=== PATIENT | male | born 1950 | race Caucasian/White ===

== ENCOUNTER → 2018-03-30 05:46 | Outpatient (CLI) | payer BC, SELFPAY ==
[2018-03-30 08:12] LABS: Absolute Lymphocyte Count 1.34 X10^3/ul (0.83-4.51); Absolute Neutrophil Count 1.9 X10^3/uL (2.0-7.7); Basophil# 0.06 X10^3/uL; Basophil% 1.5 % (0-1); Eosinophil# 0.22 X10^3/uL; Eosinophils% 5.4 % (0-5); Hematocrit 39.5 % (40-54); Lymphocyte # 1.34 X10^3/ul (4.0); Lymphocyte % 32.8 % (19-41); Mean Corp Hgb Conc 32.9 g/gl (32-36); Mean Corpuscular Hgb 29.9 pg (27.0-32.0); Mean Corpuscular Volume 90.8 fL (80-94); Mean Platelet Vol. 9.5 fl (6.2-12.0); Monocyte# 0.43 X10^3/uL; Monocyte% 10.5 % (0-10); Neutrophil # 1.92 X10^3/uL (2.7-7.7); Neutrophil % 46.9 % (47-70); Platelet Count 256 K/mm3 (150-450); RBC Distribution Width CV 14.7 % (11.6-14.6); Red Blood Count 4.35 M/mm3 (4.6-6.2); White Blood Count 4.1 K/mm3 (4.4-11.0)
[2018-03-30 08:14] LABS: POSITIVE COUNT YES; POSITIVE DIFFERENTIAL NO; POSITIVE MORPHOLOGY YES
[2018-03-30 08:25] LABS: AST(SGOT) 15 U/L (15-37); Alanine Aminotransfer ALT/SGPT 24 U/L (16-61); Albumin, Serum 3.3 g/dL (3.2-5.0); Alkaline Phosphatase 91 U/L (45-117); Anion Gap 8 (5-15); BUN 24 mg/dL (7-18); BUN/Creat Ratio 22.4 RATIO (10-20); Bilirubin, Direct 0.11 mg/dL (0.00-0.30); Calcium,Total 8.9 mg/dL (8.5-10.1); Chloride 110 mmol/L (98-107); Creatinine, Serum 1.07 mg/dL (0.70-1.30); EST Glomerular Filtration Rate 74 mL/min (>60); Est Glom Filt Rate - Afr Amer 89 mL/min (>60); Globulin 3.6 g/dL (2.2-4.2); Glucose 82 mg/dL (74-106); Potassium 4.1 mmol/L (3.5-5.1); Protein, Total 6.9 g/dL (6.4-8.2); Sodium Level 145 mmol/L (136-145)
[2018-03-30 09:12] LABS: HIV - WCH Non-Reactive (Nonreactive)
[2018-03-30 14:44] LABS: Pathologist Review Reviewed
[2018-04-02 03:07] LABS: HEPATITIS B SURFACE AG Negative (Negative); QNTFERON TB Mitogen Value > 10.00 IU/mL (.); QNTFERON TB Nil Value 0.04 IU/mL (.); QNTFERON TB1+ Ag Value 0.04 IU/mL (.); QNTFERON TB2+ Ag Value 0.04 IU/mL (.)
[2018-04-02 12:53] LABS: Hep B Surface Antibodies Non Reactive (.); Hep C Antibodies <0.1 s/co ratio (0.0-0.9); Hepatitis B Core Ab Total Negative (Negative); QNTIFERON TB Positive Criteria Negative (Negative)
--- OUTSIDE RECORDS SUMMARY | 2018-07-01 11:16 | XMS RPT_ITS ---
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9 LAB L100.1810 11.6-14.6 % Normal RDW CV 14.3 LAB L100.1820 35.1-43.9 fl High RDW SD 47.0 LAB L100.1900 150-450 K/mm3 Normal PLT 256 LAB L100.2000 6.2-12.0 fl Normal MPV 9.6 LAB L100.2100 47-70 % Normal NEUT% 53.7 LAB L100.2200 19-41 % Normal LY% 29.5 LAB L100.2300 0-10 % Normal MONO% 8.5 LAB L100.2400 0-5 % High EO% 5.8 LAB L100.2500 0-1 % Normal BASO% 0.7 LAB L100.2550 0.0-0.9 % High IM GRAN % 1.800 Result Comment: IG% - Immature Granulocytes (promyelocytes, myelocytes and metamyelocytes) > 1% indicates that a LEFT SHIFT is Present. LAB L100.2620 2.0-7.7 X10 3/uL Normal Absolute Neut 3.8 LAB L100.2720 0.83-4.51 X10 3/ul Normal Absolute Lymph 2.08 Performed By: #### L100.0100 #### [facility]. [place], [place], [address] CBC W/DIFF, AUTOMATED Collected: 03/30/2018 Status: C Source: UNIVERSAL 5:58 AM [facility] REPOSITORY TYPE CODE TESTS RESULT OUT OF RANGE REFERENCE UNITS LAB L100.1000 4.4-11.0 K/mm3 Low WBC 4.1 LAB L100.1200 4.6-6.2 M/mm3 Low RBC 4.35 LAB L100.1300 13.0-16.5 g/dl Normal HGB 13.0 LAB L100.1400 40-54 % Low HCT 39.5 LAB L100.1500 80-94 fL Normal MCV 90.8 LAB L100.1600 27.0-32.0 pg Normal MCH 29.9 LAB L100.1700 32-36 g/gl Normal MCHC 32.9 LAB L100.1810 11.6-14.6 % High RDW CV 14.7 LAB L100.1820 35.1-43.9 fl High RDW SD 48.0 LAB L100.1900 150-450 K/mm3 Normal PLT 256 LAB L100.2000 6.2-12.0 fl Normal MPV 9.5 LAB L100.2100 47-70 % Low NEUT% 46.9 LAB L100.2200 19-41 % Normal LY% 32.8 LAB L100.2300 0-10 % High MONO% 10.5 LAB L100.2400 0-5 % High EO% 5.4 LAB L100.2500 0-1 % High BASO% 1.5 LAB L100.2550 0.0-0.9 % High IM GRAN % 2.900 Result Comment: IG% - Immature Granulocytes (promyelocytes, myelocytes and metamyelocytes) > 1% indicates that a LEFT SHIFT is Present. LAB L100.2620 2.0-7.7 X10 3/uL Low Absolute Neut 1.9 LAB L100.2720 0.83-4.51 X10 3/ul Normal Absolute Lymph 1.34 LAB L100.9900 Normal PATH REV Reviewed Result Comment: AMENDED REPORT 03/30/18 1444 PATH REV previously reported as: Sara rothman Performed By: #### L100.0100 #### [facility] [address] [place], [address] BASIC METABOLIC Collected: 03/30/2018 Status: F Source: UNIVERSAL PROFILE ([facility]) 5:58 AM [facility] REPOSITORY TYPE CODE TESTS RESULT OUT OF RANGE REFERENCE UNITS LAB L501.0100 74-106 mg/dL Normal GLU 82 Result Comment: Please note revised GLUCOSE reference range effective 2017. LAB L501.1000 7-18 mg/dL High BUN 24 LAB L501.1100 0.70-1.30 mg/dL Normal CREAT,SERUM 1.07 Result Comment: The validity of the calculated GFR AND GFRAA in patients over 70 years has not been determined. Clinical correlation is essential. LAB L501.1110 >60 mL/min Normal EST GFR 74 Result Comment: Non- GFR Calc LAB L501.1115 >60 mL/min Normal EST GFR - AA 89 Result Comment: GFR Calc LAB L501.1300 10-20 RATIO High BUN/CRE 22.4 LAB L501.2200 8.5-10.1 mg/dL CA Normal 8.9 LAB L501.5300 136-145 mmol/L NA Normal 145 LAB L501.5600 3.5-5.1 mmol/L K Normal 4.1 LAB L501.5900 98-107 mmol/L High CL 110 LAB L501.6100 21.0-32.0 mmol/L Normal CO2 27.0 LAB L501.6200 5-15 Normal GAP 8 Performed By: #### L500.2500, L500.3400 #### [facility] [address] [facility] [facility]. [place], [place], [id number] LIVER PROFILE Collected: 03/30/2018 Status: F Source: RADHA 5:58 AM [facility] REPOSITORY TYPE CODE TESTS RESULT OUT OF RANGE REFERENCE UNITS LAB L501.1500 6.4-8.2 g/dL Normal T PROT 6.9 LAB L501.1800 3.2-5.0 g/dL Normal ALB 3.3 LAB L501.1950 2.2-4.2 g/dL Normal GLOB 3.6 LAB L501.4100 15-37 U/L Normal AST 15 LAB L501.4305 45-117 U/L Normal ALK P 91 LAB L501.4405 16-61 U/L Normal ALT 24 LAB L501.4600 0.20-1.00 mg/dL Normal T BILI 0.40 LAB L501.4700 0.00-0.30 mg/dL Normal D BILI 0.11 Performed By: #### L500.2500, L500.3400 #### [facility] [address] [facility] [facility]. [place], [place], [address] HIV - [facility] Collected: 03/30/2018 Status: F Source: RADHA 5:58 AM [facility] REPOSITORY TYPE CODE TESTS RESULT OUT OF RANGE REFERENCE UNITS LAB L3890.6005 Nonreactive Normal HIV - [facility] Non-Reactive Performed By: #### L3890.6005 #### [facility] [address] [facility] [place], [place], [id number] HEPATITIS B SURFACE Collected: 03/30/2018 Status: F Source: RADHA AG 5:58 AM [facility] REPOSITORY TYPE CODE TESTS RESULT OUT OF RANGE REFERENCE UNITS LAB L3100.0400 Negative Normal HB Negative SURF AG Performed By: #### L3100.0390, L3100.0460, L3100.0528, L3100.0625, L3400.8000 #### [facility] (refer to report for specific site) refer to report for address and phone number HEPATITIS B CORE AB Collected: 03/30/2018 Status: F Source: RADHA TOTAL 5:58 AM [facility] REPOSITORY TYPE CODE TESTS RESULT OUT OF RANGE REFERENCE UNITS LAB L3100.0460 Negative Normal HEP B Negative CORE,TOT Result Comment: Performed at: [address] [id number] Supervisor Beet End: Saw Cotto PhD, Phone: [phone] Performed By: #### L3100.0390, L3100.0460, L3100.0528, L3100.0625, L3400.8000 #### [facility] (refer to report for specific site) refer to report for address and phone number HEP B SURFACE Collected: 03/30/2018 Status: F Source: RADHA ANTIBODIES 5:58 AM [facility] REPOSITORY TYPE CODE TESTS RESULT OUT OF RANGE REFERENCE UNITS LAB L3100.0528 . Normal Hep B Non Reactive Rui AB Result Comment: Non Reactive: Inconsistent with immunity, less than 10 mIU/mL Reactive: Consistent with immunity, greater than 9.9 mIU/mL Performed By: #### L3100.0390, L3100.0460, L3100.0528, L3100.0625, L3400.8000 #### [facility] (refer to report for specific site) refer to report for address and phone number HEPATITIS C ANTIBODIES Collected: 03/30/2018 Status: F Source: RADHA 5:58 AM [facility] REPOSITORY TYPE CODE TESTS RESULT OUT OF RANGE REFERENCE UNITS LAB L3100.0650 0.0-0.9 s/co ratio Normal HEP C AB <0.1 Result Comment: Negative: < 0.8 Indeterminate: 0.8 - 0.9 Positive: > 0.9 The CDC recommends that a positive HCV antibody result be followed up with a HCV Nucleic Acid Amplification test (603041). Performed By: #### L3100.0390, L3100.0460, L3100.0528, L3100.0625, L3400.8000 #### [facility] (refer to report for specific site) refer to report for address and phone number QUANTIFERON TB-GOLD+ Collected: 03/30/2018 Status: F Source: RADHA 5:58 AM [facility] REPOSITORY TYPE CODE TESTS RESULT OUT OF RANGE REFERENCE UNITS LAB L3400.8025 . Normal QFT TB Comment GOLD Result Comment: The QuantiFERON-TB Gold Plus result is determined by subtracting the Nil value from either TB antigen (Ag) tube. The mitogen tube serves as a control for the test. LAB L3400.8035 . IU/mL Normal QFT TB1+ AG 0.04 [facility] L3400.8045 . IU/mL Normal QFT TB2+ AG 0.04 [facility] L3400.8055 . IU/mL Normal QFT NIL VALUE 0.04 LAB L3400.8065 . IU/mL Normal QFT MITOGEN > 10.00 [facility] L3400.8075 Negative Normal QFT TB POS Negative CRIT Result Comment: The specimen received for QuantiFERON testing was incubated by the ordering institution. Specific procedures outlined in our Directory of Services and in the package insert for the QuantiFERON Gold (In Tube) test must be followed to enable for proper stimulation of cells for the production of interferon gamma. Performed By: #### L3100.0390, L3100.0460, L3100.0528, L3100.0625, L3400.8000 #### [facility] (refer to report for specific site) refer to report for address and phone number ALLERGIES ALLERGIES DATE TYPE / CODE NAME / CODE REACTION SEVERITY SOURCE 2013 Drug No Known Unknown [facility] Allergy/4160 Allergies/F00 [facility] [address](SNOMED 1202923(RXNOR Repository CT) M) ENCOUNTERS ENCOUNTERS ADMIT/DISCHARGE ACCOUNT ADMITTING ENCOUNTER LOCATION SOURCE NUMBER CLASS 05/05/2018 [id number] Ambulatory Radha Radha 9 [facility] ing:LAB Repository 03/30/2018 [id number] Ambulatory Radha Radha 3 [facility] ing:LAB Repository PAYERS PAYERS ENCOUNTER GUARANTOR PAYER SUBSCRIBER SOURCE 05/05/2018 AYSE Demarco [id number] Insurance:ANTHEMPolic STOCKSDALEDOB: [facility] y Number: [id number] [id number] Repository [address]Gbr: (330) Date:0372-28-34[phone] () [address], [place] [address]ER: 05/05/2018 Secondary NOT GIVENUNK Radha Insurance:SELF PAY [facility] Number: Effective Repository Date:2018-05-05 03/30/2018 AYSE Myers Primary AYSE R Radha [id number] Insurance:ANTHEMPolic STOCKSDALEDOB: [facility] Number: [id number] [id number] Repository [address]Yxq: (330) Date:9219-39-76KS [phone] () [id number], [place] [address]HB: 03/30/2018 Secondary NOT GIVENUNK Radha Insurance:SELF PAY [facility] Number: Effective Repository Date:2018-03-30
== END ==
PROVIDERS: Family Provider Student in an Organized Health Care Education/Training Program; PCP Student in an Organized Health Care Education/Training Program; Referring Provider Dermatology; Visit Provider Dermatology
DX: L40.3 Pustulosis palmaris et plantaris (principal); D17.1 Benign lipomatous neoplasm of skin and subcutaneous tissue of trunk; Z79.899 Other long term (current) drug therapy
CPT/HCPCS: 36415; 80048; 80076; 85025; 86480; 86703; 86704; 86706; 86803; 87340

== ENCOUNTER → 2018-05-05 05:58 | Outpatient (CLI) | payer BC, SELFPAY ==
[2018-05-05 07:30] LABS: Absolute Lymphocyte Count 2.08 X10^3/ul (0.83-4.51); Absolute Neutrophil Count 3.8 X10^3/uL (2.0-7.7); Basophil# 0.05 X10^3/uL; Basophil% 0.7 % (0-1); Eosinophil# 0.41 X10^3/uL; Eosinophils% 5.8 % (0-5); Hemoglobin 13.8 g/dl (13.0-16.5); Lymphocyte # 2.08 X10^3/ul (4.0); Lymphocyte % 29.5 % (19-41); Mean Corp Hgb Conc 32.9 g/gl (32-36); Mean Corpuscular Hgb 29.7 pg (27.0-32.0); Mean Corpuscular Volume 90.5 fL (80-94); Mean Platelet Vol. 9.6 fl (6.2-12.0); Monocyte% 8.5 % (0-10); Neutrophil # 3.78 X10^3/uL (2.7-7.7); Neutrophil % 53.7 % (47-70); Platelet Count 256 K/mm3 (150-450); RBC Distribution Width CV 14.3 % (11.6-14.6); Red Blood Count 4.64 M/mm3 (4.6-6.2); White Blood Count 7.1 K/mm3 (4.4-11.0)
[2018-05-05 07:31] LABS: POSITIVE COUNT NO; POSITIVE DIFFERENTIAL NO; POSITIVE MORPHOLOGY NO
--- OUTSIDE RECORDS SUMMARY | 2018-07-07 01:27 | XMS RPT_ITS ---
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 [place], [place], [address] CBC W/DIFF, AUTOMATED Collected: 03/30/2018 Status: C Source: MOOSE PASS 5:58 AM [facility] REPOSITORY TYPE CODE TESTS RESULT OUT OF [...] Sara rothman Performed By: #### L100.0100 #### [facility] [address] [place], [address] BASIC METABOLIC Collected: 03/30/2018 Status: F Source: MOOSE PASS PROFILE ([facility]) 5:58 AM [facility] REPOSITORY TYPE CODE TESTS RESULT OUT OF [...] 8 Performed By: #### L500.2500, L500.3400 #### [facility] [address] [facility]. [place], [place], [address] LIVER PROFILE Collected: 03/30/2018 Status: F Source: RADHA 5:58 AM [facility] REPOSITORY TYPE CODE TESTS RESULT OUT OF [...] 0.11 Performed By: #### L500.2500, L500.3400 #### [facility] [address] [facility] [place], [place], [address] HIV - [facility] Collected: 03/30/2018 Status: F Source: RADHA 5:58 AM [facility] REPOSITORY TYPE CODE TESTS RESULT OUT OF RANGE REFERENCE UNITS LAB L3890.6005 Nonreactive Normal HIV - [facility] Non-Reactive Performed By: #### L3890.6005 #### [facility] [address] [facility]. [place], [place], [id number] HEPATITIS B SURFACE Collected: 03/30/2018 Status: F Source: RADHA AG 5:58 AM [facility] REPOSITORY TYPE CODE TESTS RESULT OUT OF RANGE REFERENCE UNITS LAB L3100.0400 Negative Normal HB Negative SURF AG Performed By: #### L3100.0390, L3100.0460, L3100.0528, L3100.0625, L3400.8000 #### [facility] (refer to report for specific site) refer to report for address and phone number HEPATITIS B CORE AB Collected: 03/30/2018 Status: F Source: RADHA TOTAL 5:58 AM [facility] REPOSITORY TYPE CODE TESTS RESULT OUT OF RANGE REFERENCE UNITS LAB L3100.0460 Negative Normal HEP B Negative CORE,TOT Result Comment: Performed at: [address] [id number] Shaker Repairer: Saw Cotto PhD, Phone: [phone] Performed By: #### L3100.0390, L3100.0460, L3100.0528, L3100.0625, L3400.8000 #### [facility] (refer to report for specific site) refer to report for address and phone number HEP B SURFACE Collected: 03/30/2018 Status: F Source: RADHA ANTIBODIES 5:58 AM [facility] REPOSITORY TYPE CODE TESTS RESULT OUT OF [...] 03/30/2018 Status: F Source: RADHA 5:58 AM [facility] REPOSITORY TYPE CODE TESTS RESULT OUT OF RANGE REFERENCE UNITS LAB L3100.0650 0.0-0.9 s/co ratio Normal HEP C AB <0.1 Result Comment: Negative: < 0.8 Indeterminate: 0.8 - 0.9 Positive: > 0.9 The CDC recommends that a positive HCV antibody result be followed up with a HCV Nucleic Acid Amplification test (396928). Performed By: #### L3100.0390, L3100.0460, L3100.0528, L3100.0625, L3400.8000 #### [facility] (refer to report for specific site) refer to report for address and phone number QUANTIFERON TB-GOLD+ Collected: 03/30/2018 Status: F Source: RADHA 5:58 AM [facility] REPOSITORY TYPE CODE TESTS RESULT OUT [...] SEVERITY SOURCE 2013 Drug No Known Unknown [facility] Allergy/4160 Allergies/F00 [facility] [address](SNOMED 9685370(RXNOR Repository CT) M) ENCOUNTERS ENCOUNTERS ADMIT/DISCHARGE ACCOUNT ADMITTING ENCOUNTER LOCATION SOURCE NUMBER CLASS 05/05/2018 [id number] Ambulatory Radha Radha 9 [facility] ing:LAB Repository 03/30/2018 [id number] Ambulatory Radha Radha 3 [facility] ing:LAB Repository PAYERS PAYERS ENCOUNTER GUARANTOR PAYER SUBSCRIBER SOURCE 05/05/2018 AYSE Demarco [id number] Insurance:ANTHEMPolic [facility] Number: [id number] [id number] Repository [address]Vou: ([phone]) Date:2973-08-66TB [phone] () [id number], [place] [address]FZ: 05/05/2018 Secondary NOT GIVENUNK Radha Insurance:SELF PAY [facility] Number: Effective Repository Date:2018-05-05 03/30/2018 AYSE Myers Primary AYSE R Radha [id number] Insurance:ANTHEMPolic STOCKSDALEDOB: [facility] Number: [id number] [id number] Repository [address]Srw: (330) Date:1730-15-11IN [phone] () [id number], [place] [address]CZ: 03/30/2018 Secondary NOT GIVENUNK Radha Insurance:SELF PAY [facility] Number: Effective Repository Date:2018-03-30
== END ==
PROVIDERS: Family Provider Student in an Organized Health Care Education/Training Program; PCP Student in an Organized Health Care Education/Training Program; Referring Provider Dermatology; Visit Provider Dermatology
DX: Z79.899 Other long term (current) drug therapy (principal)
CPT/HCPCS: 36415; 85025

== ENCOUNTER 2019-03-11 10:49 | Inpatient (IN) | payer BC, SELFPAY ==
[2019-03-11] VITALS (13 sets, daily range): BP systolic 112–152; BP diastolic 67–93; PULSE 51–63; RESP 13–17; TEMP 36.1–37; O2SAT 96–98; BMI 32.1; BMI 30.9; BMI 31.0
--- NOTE | 2019-03-11 11:08 | EKG12_ITS ---
Test Reason : CP Blood Pressure : / mmHG Vent. Rate : 059 BPM Atrial Rate : 059 BPM P-R Int : 246 ms QRS Dur : 096 ms QT Int : 414 ms P-R-T Axes : 021 031 039 degrees QTc Int : 409 ms Sinus bradycardia with 1st degree A-V block Otherwise normal ECG Confirmed by KANDACE NASCIMENTO, JEAN CLAUDE ([id number]), video tape editor SHRAVAN BERGMAN ([id number]) on 03/14/2019 11:33:20 AM Referred By: Janusz Virgen Confirmed By:JEAN CLAUDE JERONIMO MD
[2019-03-11 11:16] LABS: Absolute Lymphocyte Count 1.52 X10^3/uL (0.83-4.51); Absolute Neutrophil Count 3.6 X10^3/uL (2.0-7.7); Basophil# 0.07 X10^3/uL; Basophil% 1.1 % (0-1); Eosinophil# 0.55 X10^3/uL; Eosinophils% 8.5 % (0-5); Hemoglobin 14.2 g/dL (13.0-16.5); Lymphocyte # 1.52 X10^3/ul (4.0); Lymphocyte % 23.4 % (19-41); Mean Corpuscular Hgb 29.6 pg (27.0-32.0); Mean Corpuscular Volume 89.8 fL (80-94); Mean Platelet Vol. 9.2 fl (6.2-12.0); Monocyte# 0.54 X10^3/uL; Monocyte% 8.3 % (0-10); NRBC Flagged by Analyzer 0 % (0-5); Neutrophil % 55.5 % (47-70); Platelet Count 266 K/mm3 (150-450); RBC Distribution Width CV 14.2 % (11.6-14.6); RBC Distribution Width SD 47.1 fl (35.1-43.9); Red Blood Count 4.79 M/mm3 (4.6-6.2); White Blood Count 6.5 K/mm3 (4.4-11.0)
[2019-03-11] MEDS: Aspirin 81 MG TAB.CHEW 324 MG PO (11:23)
[2019-03-11 11:29] LABS: Anion Gap 6 (5-15); BUN 28 mg/dL (7-18); BUN/Creat Ratio 26.7 RATIO (10-20); Chloride 109 mmol/L (98-107); Creatinine, Serum 1.05 mg/dL (0.70-1.30); EST Glomerular Filtration Rate 75 mL/min (>60); Est Glom Filt Rate - Afr Amer 91 mL/min (>60); Estimated Creatinine Clearance 66.95 ml/min; Glucose 99 mg/dL (74-106); Potassium 4.2 mmol/L (3.5-5.1); Sodium Level 141 mmol/L (136-145)
--- NOTE | 2019-03-11 11:30 | RAD_ITS ---
STUDY: X-RAY CHEST REASON FOR EXAM: Male, 68 years old. TECHNIQUE: COMPARISON: None. FINDINGS: Multiple liver metallic clips noted along the right trachea in the base of the neck due to thyroid surgery. The lungs are clear and expanded. There is no demonstrated pleural abnormality. Normal size heart. Normal mediastinum and marty. Normal visualized pulmonary arteries. Normal visualized aortic arch and descending thoracic aorta. Normal visualized thoracic spine. Normal visualized ribs, clavicles, and shoulders. There is no demonstrated abnormality of the visualized soft tissue structures of the upper abdomen. RAD/Chest PA and Lateral IMPRESSION: Normal x-ray examination of the chest. Electronically Signed: Pb Harris, at 12:14 EST Tel , Service support ,
--- NOTE | 2019-03-11 11:32 | ED.VIS.GEN ---
History of Present Illness Chief Complaint: Chest Pain Detail of Chief Complaint: Chest pain with exertion x3 days Informant: Patient Onset: Days - Onset 3 days ago Context: Onset with activity Timing: Intermittent Quality: Pressure Location: Left chest Current Severity: - - None Maximum Severity: Moderate Worsened by: Carrying 100 pound feeds Relieved by: Rest Associated Symptoms: None Narrative: Patient is a 68-year-old male with history of hypothyroidism who presents with exertional chest pressure left side. First episode 3 days ago. Having 2 episodes a day. He states if he carries 100 pound bag of feed he develops the pressure in his chest 5 minutes after exerting himself. Pain goes away after a couple of minutes. He has no associated symptoms. Is no history of coronary disease. He smoked when he was a teenager. He denies history of hypertension, diabetes or hypercholesterolemia. Family history of diabetes. No family history coronary disease. He denies symptoms of claudication. Prior similar symptoms: No Recent Illness/Hospitalization: No - Past Medical History (1) Hypothyroidism Status: Chronic Comment: Status post partial thyroidectomy due to trauma Past Medical History - Allergies and Home Meds Allergies/Adverse Reactions: Allergies No Known Allergies Allergy (Verified 03/11/19 10:49) Primary Care Physician: Joesph Chaudhari DO [Primary Care Provider] - Prior records reviewed: Yes Surgical History: - - Status post partial thyroidectomy Lives: Spouse/ Significant Other Smoking Status: Never smoker Alcohol: None Drugs: None Review of Systems General: Denies: Chills, Fever, Sweats Eyes: Denies: Visual changes - bilaterally, Blurred Vision - bilaterally, Diplopia ENT: Denies: Rhinorrhea, Sore throat Cardiovascular: Reports: Chest pain. Denies: Palpitations, Heart racing Respiratory: Denies: Dyspnea, Cough, Dyspnea on exertion Gastrointestinal: Denies: Abdominal pain, Nausea, Vomiting, Diarrhea, Melena, Hematochezia Genitourinary: Denies: Dysuria, Hematuria, Frequency Musculoskeletal: Denies: Myalgias, Arthralgias, Neck pain, Back pain, Swelling, Extremity Pain Skin: Denies: Rash, Wounds Neurological: Denies: Headache, Weakness, Numbness Hematologic: Denies: Easy bruising, Easy bleeding Physical Exam Vital Signs/Narrative: Vital Signs Temp Pulse Resp BP Pulse Ox 03/11/19 10:56 62 15 152/93 H 96 03/11/19 10:50 97.0 F L 63 17 148/79 H 98 Inital Vital Signs reviewed: Yes General: Well nourished, Well developed, No Acute Distress Head: Normocephalic, Atraumatic Eyes: Perrl, EOMI ENT: Moist mucous membranes, No rhinorrhea Neck: Supple, Nontender Cardiovascular: Regular rate, Regular rhythm, No murmurs, Normal S1, Normal S2 Respiratory: No distress, CTA bilaterally, Chest nontender Abdomen: Soft, Nontender, Nondistended, Normal bowel sounds, No masses Back: Nontender, Normal Inspection. Negative for: CVA tenderness, Spinal tenderness Extremities: Nontender, No edema, - - DP and PT pulses are palpable.. Negative for: Tenderness, Edema Skin: Normal color, No rash Neurological: Alert, Oriented x3, Cranial nerves II-XII grossly intact, Normal Strength, Normal Sensation Psychological: Normal affect, Normal Mood Diagnostic/Tx/Re-eval 03/11/19 11:30 Chest PA and Lateral [RAD] Stat Laboratory Results 03/11/19 03/11/19 10:32 10:32 WBC 6.5 RBC 4.79 Hgb 14.2 Hct 43.0 MCV 89.8 MCH 29.6 MCHC 33.0 RDW Std Deviation 47.1 H RDW Coeff of Anum 14.2 Plt Count 266 MPV 9.2 Immature Gran % (Auto) 3.200 H Neut % (Auto) 55.5 Lymph % (Auto) 23.4 [place] % (Auto) 8.3 Eos % (Auto) 8.5 H Baso % (Auto) 1.1 H Absolute Neuts (auto) 3.6 Absolute Lymphs (auto) 1.52 Nucleated RBC % 0 Sodium 141 Potassium 4.2 Chloride 109 H Carbon Dioxide 26.0 Anion Gap 6 BUN 28 H Creatinine 1.05 Estim Creat Clear Calc 66.95 Est GFR (MDRD) Af Amer 91 Est GFR (MDRD) Non-Af 75 BUN/Creatinine Ratio 26.7 H Glucose 99 Calcium 9.0 Troponin I 0.048 H Blood work is remarkable for an elevated troponin of 0.048. Patient did receive aspirin in the emergency department. With history of classic exertional angina cardiology and hospitalist was paged for admission and cardiac catheterization. - EKG Initial EKG Interpretation: Sinus Bradycardia - Sinus bradycardia with a ventricular rate of 51. LA interval is 246 ms. QS duration 96 ms. QT duration 414 ms. [place] is normal. In addition to sinus bradycardia there is a first-degree AV block. There is no evidence of acute ischemia. There is no old EKG for comparison. - Medical Decision Making Patient with classic exertional angina. Since troponin is elevated he received Lovenox in addition to the aspirin. We will discuss case with Dr. Ernie Berger automation analyst for cardiology and ask if he would like patient to receive either Plavix or Brilinta in addition to aspirin and Lovenox. differential diagnosis was cardiac ischemia versus noncardiac etiology. - Critical Care Time Critical care time (excluding procedures): 30-74 minutes, Discussing w/Patient &/or Family/Record Press Tender, Discussing w/Consultants, Arranging Admission or Transfer - CC time 32 minutes ED Disposition - Plan for ED Patient: Disposition: Acute Care Hospital [facility] Diagnosis: Exertional chest pain, Elevated troponin I level Referrals: Joesph Chaudhari DO [Primary Care Provider] -
[2019-03-11] MEDS: Enoxaparin 100 MG/ML Syringe SC ×2 (11:50→21:43)
--- NOTE | 2019-03-11 11:50 | PCM.HP.STD ---
Problem List (1) Elevated troponin I level Status: Acute (2) Exertional chest pain Status: Acute (3) Hypertension Status: Chronic (4) Hypothyroidism Status: Chronic Comment: Status post partial thyroidectomy due to trauma History of Present Illness Date of Admission: 03/11/19 Chief Complaint: Chest pain The patient is a 68 year old M with past medical history significant for iatrogenic hypothyroidism, hypertension who presented with chest pain. Patient symptoms started 3 days prior to coming in. He did notice some discomfort in the left upper chest with activity. 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 He did inform his on the morning of his presentation was encouraged to present to the ED. In the ED patient was found to have elevated troponin. An assessment of acute coronary syndrome made started on Lovenox admitted to a monitored bed with consultation placed to cardiology Past Medical History Past Medical History (Chronic Problems): Chronic Problems Hypothyroidism (Chronic) Status post partial thyroidectomy due to trauma Hypertension (Chronic) Allergies No Known Allergies Allergy (Verified 03/11/19 10:49) Home Medications: Ambulatory Orders Medication Instructions Recorded Aspirin [Aspirin, Baby] 81 mg PO DAILY@0800 03/28/13 Levothyroxine Sodium [Synthroid] 300 mcg PO DAILY 03/28/13 Multivitamins,Therapeutic 1 tablet PO DAILY 03/28/13 [Multivitamin] Surgical History: - - Status post partial thyroidectomy Lives: Spouse/ Significant Other Smoking Status: Never smoker Alcohol: None Drugs: None - *Family History Maternal History Items: Diabetes Review of Systems Constitutional: Denies: Anorexia, Chills, Fever, Night Sweats, Weight Change HEENT: Denies: Head Aches, Sinus Congestion, Sinus Drainage Cardiovascular: Reports: Chest Pain. Denies: Orthopnea, Palpitations Respiratory: Denies: Cough, Shortness of breath at rest, Shortness of breath upon exertion, Sputum production Gastrointestinal: Denies: Abdominal Pain, Hematemesis, Hematochezia, Nausea, Melena, Vomiting Genitourinary: Denies: Dysuria, Frequency, Hematuria, Urgency Musculoskeletal: Denies: Joint Pain, Joint Tenderness Skin: Denies: Rash Neurological: Denies: Focal weakness, Numbness, Tingling Psychiatric: Denies: Homicidal Ideations, Suicidal Ideations Hematologic/ Lymphatic: Denies: Easy Bruising, Easy Bleeding VTE Information - Inpt Only VTE Present on Admission: No VTE Mechan Device Prophylaxis: None VTE Pharm Prophylaxis ordered?: Yes Patient Problems: Active and Suspected Problems Exertional chest pain (Acute) Elevated troponin I level (Acute) Objective: GENERAL: cooperative HEENT: Atraumatic; EYES; Anicteric, Normal Conjunctiva NECK; supple, normal thyroid, RESPIRATORY: Diminished to auscultation CARDIOVASCULAR: Regular S1 S2, GI: soft, normoactive bowel sounds, : No Renal angle tenderness; EXTREMITIES: No edema, no clubbing, MUSCULOSKELETAL: no muscle waisting NEURO: Awake; no lateralizing signs. SKIN: No Rash PSYCH; Flat affect - Physical Exam Vitals/I&O's: Vital Signs Temp Pulse Resp BP Pulse Ox 97.0 F L 62 15 152/93 H 96 03/11/19 10:50 03/11/19 10:56 03/11/19 10:56 03/11/19 10:56 03/11/19 10:56 Oxygen Flow Rate (L/min) 2 Oxygen Delivery Method Nasal Cannula Weight: 95.708 kg Body Mass Index (BMI) 32.1 Laboratory Results 03/11/19 10:32: WBC 6.5, RBC 4.79, Hgb 14.2, Hct 43.0, MCV 89.8, MCH 29.6, MCHC 33.0, RDW Std Deviation 47.1 H, RDW Coeff of Anum 14.2, Plt Count 266, MPV 9.2, Immature Gran % (Auto) 3.200 H, Neut % (Auto) 55.5, Lymph % (Auto) 23.4, [place] % (Auto) 8.3, Eos % (Auto) 8.5 H, Baso % (Auto) 1.1 H, Absolute Neuts (auto) 3.6, Absolute Lymphs (auto) 1.52, Nucleated RBC % 0 03/11/19 10:32: Sodium 141, Potassium 4.2, Chloride 109 H, Carbon Dioxide 26.0, Anion Gap 6, BUN 28 H, Creatinine 1.05, Estim Creat Clear Calc 66.95, Est GFR (MDRD) Af Amer 91, Est GFR (MDRD) Non-Af 75, BUN/Creatinine Ratio 26.7 H, Glucose 99, Calcium 9.0, Troponin I 0.048 H Assessment/Plan All Active Problems Exertional chest pain (Acute) Elevated troponin I level (Acute) Patient is a 68-year-old gentleman presented with exertional chest pain with elevated troponin. 1. Acute NSTEMI ~patient has been admitted to a monitored bed, consult placed to cardiology. As part of patient's management patient was placed on therapeutic Lovenox, aspirin, beta-blockers and nitroglycerin as needed. 2D echo ordered for EF and wall motion abnormality assessment. Definitive management with regards to possible left heart catheterization and intervention deferred to cardiology 2. Hypothyroidism ~Following trauma with resultant subtotal thyroidectomy; patient is on levothyroxine home dose continued 3. Hypertension ~ blood pressure controlled, he has no medications which he stopped once he lost over 100 pounds 4. Obesity ~With BMI of 32.1 weight loss advised 5. DVT prophylaxis ~ on enoxaparin Code Visit Inpatient E&M: 87233 Init Hosp L3
--- NOTE | 2019-03-11 11:54 | NURSING ---
PCU ACUTE NSTEMI KITTOJohn
--- NOTE | 2019-03-11 12:55 | ECHOCS_ITS ---
Reason For Study: Chest pain Procedure This was a 2D Doppler, Color Flow transthoracic echocardiogram. The study was technically difficult. Exam performed portable in patient room. Left Ventricle Normal LV size. Left ventricular systolic function is normal. The estimated ejection fraction is 60 %. Stage 1 diastolic dysfunction. No regional wall motion abnormalities noted. Right Ventricle Normal RV size. Normal systolic function. Atria Normal left atrium. Normal right atrium. Mitral Valve Normal mitral valve. Tricuspid Valve Normal tricuspid valve. Mild tricuspid valve insufficiency. Pulmonary artery systolic pressure is 30 mmHg. Aortic Valve The aortic valve is not well visualized. Pulmonic Valve Normal pulmonic valve. Great Vessels Normal aortic root. The pulmonary artery is normal size. Normal inferior vena cava. Pericardium/Pleural No pericardial effusion. Medication Diluted definity 3ml given slow IV push to enhance endocardial definition. Negative bubble study on previous echo. MMode/2D Measurements & Calculations LVIDd: 3.9 cm IVSd: 1.2 cm Ao root diam: 3.6 cm LVIDs: 2.5 cm LVPWd: 1.2 cm RVDd: 3.8 cm FS: 37.2 % LAV(MOD-bp): 46.6 ml LA A4 area: 16.6 cm2 LA dimension(2D): 4.4 cm LAV(MOD-bp) Indexed: 22.3 ml/m2 LAV(MOD-sp2): 44.5 ml LAV(MOD-sp4): 46.0 ml RA A4 area: 16.1 cm2 Doppler Measurements & Calculations MV E max erich: 60.8 cm/sec Lat Peak E' Erich: 8.3 cm/sec Med Peak E' Erich: 4.8 cm/sec MV A max erich: 82.7 cm/sec E/E' lat: 7.3 E/E' med: 12.7 MV E/A: 0.74 Ao V2 max: 165.9 cm/sec LV V1 max: 103.4 cm/sec PA V2 max: 82.7 cm/sec Ao max P.0 mmHg LV V1 max P.3 mmHg TR max erich: 251.2 cm/sec TR max P.2 mmHg Interpretation Summary Normal LV size. Left ventricular systolic function is normal. The estimated ejection fraction is 60 %. Stage 1 diastolic dysfunction. Mild tricuspid valve insufficiency. Pulmonary artery systolic pressure is 30 mmHg. Contrast injection was performed. Ordering Physician: Janusz Virgen Referring Physician: Joesph Raines Performed By: Yamilex Boyle RDCS
--- NOTE | 2019-03-11 13:33 | EKG12_ITS ---
Test Reason : Blood Pressure : / mmHG Vent. Rate : 054 BPM Atrial Rate : 054 BPM P-R Int : 262 ms QRS Dur : 096 ms QT Int : 444 ms P-R-T Axes : 024 023 033 degrees QTc Int : 421 ms Sinus bradycardia with 1st degree A-V block Otherwise normal ECG When compared with ECG of 29-MAR-2013 05:32, No significant change was found Confirmed by KANDACE NASCIMENTO, JEAN CLAUDE ([id number]), editor sound JOO RAMSEY ([id number]) on 03/15/2019 3:01:18 PM Referred By: Janusz Virgen Confirmed By:JEAN CLAUDE JERONIMO MD
--- NOTE | 2019-03-11 14:35 | NURSING ---
Pt refusing loading dose of Plavix until pt is seen by Dr Berger. Violeta RN
[2019-03-11] MEDS: Clopidogrel Bisulfate 300 MG Tablet PO (16:17)
--- NOTE | 2019-03-11 16:40 | CON.PCM_ITS ---
Reason for Consult Date of Consultation: 03/11/19 Reason for Consultation: Chest pain History of Present Illness: The patient is a 68 year old M with no previous cardiac history who presented with a 3-day history of chest heaviness. He describes this as a pressure-like sensation in his chest which appears to occur with exertion and goes away with rest. He was lifting 5200+ pound feed bags and throwing them. He did not have any diaphoresis no nausea no vomiting and no radiation of this discomfort. He told his about this this morning and was urged to come to the emergency room. In the emergency room he was noted to be pain-free his EKG was noted to be normal and he had mildly abnormal cardiac enzymes. Admission was recommended. Cardiology consultation was sought. Initially they had thought about being transferred to the [facility]. [] Past Medical History Allergies/Adverse Reactions: Allergies No Known Allergies Allergy (Verified 03/11/19 10:49) Home Medications: Ambulatory Orders Medication Instructions Recorded Aspirin [Aspirin, Baby] 81 mg PO DAILY@0800 03/28/13 Levothyroxine Sodium [Synthroid] 300 mcg PO DAILY 03/28/13 Cyanocobalamin (Vitamin B-12) 5,000 mcg SL DAILY 03/11/19 [B-12] Past Medical History (Chronic Problems): Chronic Problems Hypothyroidism (Chronic) Status post partial thyroidectomy due to trauma Hypertension (Chronic) Surgical History: - - Status post partial thyroidectomy - *Family History Maternal History Items: Diabetes Lives: Spouse/ Significant Other Smoking Status: Never smoker Alcohol: None Drugs: None Review of Systems - Review of Systems General: Denies: Fever, Night Sweats, Fatigue HEENT: Reports: Vision Change Cardiovascular: Reports: Chest Discomfort with Exertion. Denies: Chest Discomfort, Shortness of Breath, Orthopnea, PND, Peripheral Edema, Palpitations, Lightheadedness, Dizziness, Near Syncope, Syncope Respiratory: Denies: Cough, Sputum Production, Hemoptysis Gastrointestinal: Denies: Hematemesis, Hematochezia, Melena Genitourinary: Denies: Dysuria, Hematuria Skin: Denies: Rash Neurological: Denies: Dizziness Psychiatric: Denies: Anxiety Endocrine: Denies: Heat Intolerance Hematologic/ Lymphatic: Denies: Anemia Subjectve: Pleasant gentleman in no distress Objective: Vital Signs Temp Pulse Resp BP Pulse Ox 97.7 F L 55 L 16 138/89 H 98 03/11/19 12:55 03/11/19 13:14 03/11/19 13:06 03/11/19 12:55 03/11/19 13:06 Oxygen Flow Rate (L/min) 2 Oxygen Delivery Method Room Air Weight: 216 lb 0.848 oz Body Mass Index (BMI) 30.9 General: Awake, Alert, Oriented x 3 HEENT: PERRL, EOMI, Sclera Non Icteric Neck: Supple, Good ROM, No Lymph Node Enlargement Lungs: Clear to auscultation Cardiovascular: Regular Rhythm, Normal S1, Normal S2, No Murmurs, No Rubs, No Gallops Vascular: No Carotid Bruits, Normal Femoral Pulses, Normal Radial Pulses, Normal Dorsalis Pedal Pulse, Normal Posterior Tibial Pulses Abdomen: Bowel Sounds Present, Soft, Non Tender, No HSM, No Organomegaly Extremities: No Cyanosis, No Clubbing, No edema Musculoskeletal: No Erythema Skin: No Rashes Lymphatic: No Lymph Node Enlargement Neurological: No Focal Motor or Sensory Deficit Psych/Mental Status: Appropriate 03/11/19 10:32: WBC 6.5, RBC 4.79, Hgb 14.2, Hct 43.0, MCV 89.8, MCH 29.6, MCHC 33.0, Plt Count 266, MPV 9.2, Immature Gran % (Auto) 3.200 H, Neut % (Auto) 55.5, Lymph % (Auto) 23.4, [place] % (Auto) 8.3, Eos % (Auto) 8.5 H, Baso % (Auto) 1.1 H, Absolute Neuts (auto) 3.6, Nucleated RBC % 0 03/11/19 10:32: Sodium 141, Potassium 4.2, Chloride 109 H, Carbon Dioxide 26.0, Anion Gap 6, BUN 28 H, Creatinine 1.05, Est GFR (MDRD) Af Amer 91, Est GFR (MDRD) Non-Af 75, BUN/Creatinine Ratio 26.7 H, Glucose 99, Calcium 9.0, Troponin I 0.048 H 03/11/19 13:25: Troponin I 0.065 H Rhythm: EKG: Normal sinus rhythm with no acute changes ECHO: Preserved left ventricular systolic function Stress Test: Cardiac Cath: PCI: CT Surgery: Holter monitor: EPS: PPM: CXR: Chest CT Scan: Assessment/Plan 1. Chest pain unstable angina * Patient presents with chest discomfort over the last 3 to 4 days with exertion and going away with rest. He has had no rest discomfort. His EKG is normal at this present time and he has had mildly abnormal cardiac enzymes. * My suspicion at this time is that he has unstable angina and will be treated thus: * Aspirin * High intensity statin * Low-dose beta-yaya * Clopidogrel loading * Would recommend cardiac catheterization in the next 48 hours. At the moment he is free of any chest discomfort and has no EKG changes I did discuss with him and his that based on the above there is no reason to perform this over the weekend. In addition we had a long discussion about whether he could be done here or needs to be transferred to the [facility]. After the discussion it was decided by the family that they would prefer it to be done here on Thursday. We would confer afterwards to discuss the results. They appear to be pretty comfortable with the above decision. * * Thank you for allowing me to participate in the care of your patient. Please don't hesitate to call if any issues arise
[2019-03-11] MEDS: Atorvastatin Calcium 80 MG Tablet PO (21:43)
[2019-03-11] MEDS: Metoprolol Tartrate 25 MG Tablet 12.5 MG PO (21:43)
[2019-03-12] VITALS (13 sets, daily range): BP systolic 103–115; BP diastolic 62–78; PULSE 51–65; RESP 11–18; TEMP 36.4–36.8; O2SAT 96–98
[2019-03-12] MEDS: Levothyroxine 150 MCG Tablet 300 MCG PO (05:48)
[2019-03-12 07:22] LABS: Hematocrit 43.9 % (40-54); Hemoglobin 14.4 g/dL (13.0-16.5); Mean Corp Hgb Conc 32.8 g/dL (32-36); Mean Corpuscular Hgb 29.8 pg (27.0-32.0); Mean Corpuscular Volume 90.7 fL (80-94); Mean Platelet Vol. 9.3 fl (6.2-12.0); Platelet Count 253 K/mm3 (150-450); RBC Distribution Width CV 14.2 % (11.6-14.6); RBC Distribution Width SD 47.5 fl (35.1-43.9); Red Blood Count 4.84 M/mm3 (4.6-6.2); White Blood Count 5.9 K/mm3 (4.4-11.0)
--- NOTE | 2019-03-12 07:23 | PCM.PN.HOSP ---
Patient Problems: Active and Suspected Problems Exertional chest pain (Acute) Elevated troponin I level (Acute) Reason for Visit: Follow-up; acute coronary syndrome Subjective: He was admitted with chest pain and assessment of acute coronary syndrome made admitted to a monitored bed where he is currently being managed. Objective: GENERAL: cooperative HEENT: Atraumatic; EYES; Anicteric, Normal Conjunctiva NECK; supple, normal thyroid, RESPIRATORY: Diminished to auscultation CARDIOVASCULAR: Regular S1 S2, GI: soft, normoactive bowel sounds, : No Renal angle tenderness; EXTREMITIES: No edema, no clubbing, MUSCULOSKELETAL: no muscle waisting NEURO: Awake; no lateralizing signs. SKIN: No Rash PSYCH; Flat affect Vitals/I&O's: Vital Signs Temp Pulse Resp BP Pulse Ox 98.0 F 54 L 11 L 108/62 96 03/12/19 04:14 03/12/19 04:14 03/12/19 04:14 03/12/19 04:14 03/12/19 04:14 Oxygen Flow Rate (L/min) 2 Oxygen Delivery Method Room Air Weight: 98 kg Body Mass Index (BMI) 30.9 Intake and Output for Last 24 Hours 03/10/19 03/11/19 03/12/19 23:59 23:59 23:59 Intake Total 1475 / 1475 240 / 240 Balance 1475 / 1475 240 / 240 Laboratory Results 03/11/19 10:32: WBC 6.5, RBC 4.79, Hgb 14.2, Hct 43.0, MCV 89.8, MCH 29.6, MCHC 33.0, RDW Std Deviation 47.1 H, RDW Coeff of Anum 14.2, Plt Count 266, MPV 9.2, Immature Gran % (Auto) 3.200 H, Neut % (Auto) 55.5, Lymph % (Auto) 23.4, [place] % (Auto) 8.3, Eos % (Auto) 8.5 H, Baso % (Auto) 1.1 H, Absolute Neuts (auto) 3.6, Absolute Lymphs (auto) 1.52, Nucleated RBC % 0 03/11/19 10:32: Sodium 141, Potassium 4.2, Chloride 109 H, Carbon Dioxide 26.0, Anion Gap 6, BUN 28 H, Creatinine 1.05, Estim Creat Clear Calc 66.95, Est GFR (MDRD) Af Amer 91, Est GFR (MDRD) Non-Af 75, BUN/Creatinine Ratio 26.7 H, Glucose 99, Calcium 9.0, Troponin I 0.048 H 03/11/19 13:25: Troponin I 0.065 H 03/11/19 16:30: Troponin I 0.069 H 03/12/19 06:50: WBC 5.9, RBC 4.84, Hgb 14.4, Hct 43.9, MCV 90.7, MCH 29.8, MCHC 32.8, RDW Std Deviation 47.5 H, RDW Coeff of Anum 14.2, Plt Count 253, MPV 9.3 03/12/19 06:50: Sodium Pending, Potassium Pending, Chloride Pending, Carbon Dioxide Pending, Anion Gap Pending, BUN Pending, Creatinine Pending, Est GFR (MDRD) Af Amer Pending, Est GFR (MDRD) Non-Af Pending, BUN/Creatinine Ratio Pending, Glucose Pending, Calcium Pending, Triglycerides Pending, Cholesterol Pending, LDL Cholesterol Pending, VLDL Cholesterol Pending, HDL Cholesterol Pending, TSH Pending Current Medications Acetaminophen (Tylenol) 650 mg PO Q6H PRN PRN PRN Reason: Pain Score 1-3/Temp > 100.7 F Al Hydroxide/Mg Hydroxide (Mylanta Ii) 30 ml PO Q6H PRN PRN PRN Reason: Gastric Burning Albuterol Sulfate (Ventolin Aerosols) 2.5 mg INHALATION Q2H PRN PRN PRN Reason: SOB/Wheezing Aspirin (Ecotrin) 81 mg PO DAILY@0800 [facility] Atorvastatin Calcium (Lipitor) 80 mg PO QHS [facility] Last Admin: 03/11/19 21:43 Dose: 80 mg Documented by: Clopidogrel Bisulfate (Plavix) 75 mg PO DAILY [facility] Dextrose (D50w Syringe) 0 gm IV X1 PRN; Protocol PRN Reason: Hypoglycemia Enoxaparin Sodium (Lovenox) 100 mg 1 mg/kg (100 mg) SC Q12 [facility] Last Admin: 03/11/19 21:43 Dose: 100 mg Documented by: Glucagon () 1 mg IM .X1 PRN PRN Reason: Hypoglycemia Guaifenesin (Robitussin) 20 ml PO Q4H PRN PRN PRN Reason: COUGH Levothyroxine Sodium (Synthroid) 300 mcg PO DAILY@0600 [facility] Last Admin: 03/12/19 05:48 Dose: 300 mcg Documented by: Magnesium Hydroxide (Milk Of Magnesia) 30 ml PO DAILY PRN PRN PRN Reason: Constipation Melatonin (Melatonin) 3 mg PO QHS PRN PRN PRN Reason: INSOMNIA Metoprolol Tartrate (Lopressor (Beta Cedric)) 12.5 mg PO BID [facility] Last Admin: 03/11/19 21:43 Dose: 12.5 mg Documented by: [facility]it[facility] ([facility]amin) [facility] Nitroglycerin (Nitrostat) 0.4 mg SUBLINGUAL Q5M PRN PRN Reason: CHEST PAIN Ondansetron HCl (Zofran) 4 mg IV Q8H PRN PRN PRN Reason: NAUSEA/VOMITING Oxycodone HCl (Oxyir) 5 mg PO Q4H PRN PRN PRN Reason: Pain Score 4-5/10 Oxycodone HCl (Oxyir) 10 mg PO Q4H PRN PRN PRN Reason: Pain Score 6-10/10 Sodium Chloride () 10 - 40 ml IV UD PRN PRN Reason: SALINE FLUSH STROKE Vital Signs/Narrative: Vital Signs Temp Pulse Resp BP Pulse Ox 03/12/19 04:14 98.0 F 54 L 11 L 108/62 96 Medical Necessity - Tobacco Use Smoking Status: Never smoker Assessment/Plan All Active Problems Exertional chest pain (Acute) Elevated troponin I level (Acute) Patient is a 68-year-old gentleman presented with exertional chest pain with elevated troponin. 1. Acute NSTEMI ~patient has been admitted to a monitored bed, consult placed to cardiology. As part of patient's management patient was placed on therapeutic Lovenox, aspirin, beta-blockers and nitroglycerin as needed. 2D echo ordered for EF and wall motion abnormality assessment. Definitive management with regards to possible left heart catheterization and intervention deferred to cardiology ?03/12/2019. Patient was seen by Dr. Berger with cardiology patient is currently on optimal medical therapy with plans for patient undergo left heart catheterization on 03/14/2019. 2. Hypothyroidism ~Following trauma with resultant subtotal thyroidectomy; patient is on levothyroxine home dose continued 3. Hypertension ~ blood pressure controlled, he has no medications which he stopped once he lost over 100 pounds 4. Obesity ~With BMI of 32.1 weight loss advised 5. DVT prophylaxis ~ on enoxaparin Code Visit Inpatient E&M: 02619 Subs Hosp L2
[2019-03-12 07:47] LABS: Anion Gap 8 (5-15); BUN 25 mg/dL (7-18); BUN/Creat Ratio 24.8 RATIO (10-20); Calcium,Total 8.8 mg/dL (8.5-10.1); Chloride 107 mmol/L (98-107); Cholesterol 209 mg/dL (200); Creatinine, Serum 1.01 mg/dL (0.70-1.30); EST Glomerular Filtration Rate 78 mL/min (>60); Est Glom Filt Rate - Afr Amer 95 mL/min (>60); Estimated Creatinine Clearance 74.28 ml/min; Glucose 94 mg/dL (74-106); High Density Lipoprotein 44 mg/dL; Potassium 4.4 mmol/L (3.5-5.1); Sodium Level 142 mmol/L (136-145); Thyroid Stim Hormone (TSH) 0.19 uIU/mL (0.358-3.74); Triglycerides 134 mg/dL; Very Low Density Lipoprotein 27 mg/dL (5-40)
[2019-03-12] MEDS: Multivitamins,Therapeutic Tablet 1 TABLET PO (09:31)
[2019-03-12] MEDS: Metoprolol Tartrate 25 MG Tablet 12.5 MG PO ×2 (09:31→21:28)
[2019-03-12] MEDS: Aspirin E.C. 81 MG Tablet PO (09:31)
[2019-03-12] MEDS: Clopidogrel Bisulfate 75 MG Tablet PO (09:32)
[2019-03-12] MEDS: Enoxaparin 100 MG/ML Syringe SC ×2 (09:35→21:27)
--- NOTE | 2019-03-12 09:39 | PN.CARD_ITS ---
Subjectve: Patient seen and evaluated Objective: Vital Signs Temp Pulse Resp BP Pulse Ox 97.5 F L 60 16 115/78 96 03/12/19 09:18 03/12/19 09:31 03/12/19 09:18 03/12/19 09:18 03/12/19 09:18 Oxygen Flow Rate (L/min) 2 Oxygen Delivery Method Room Air Weight: 216 lb 0.848 oz Body Mass Index (BMI) 30.9 Intake and Output for Last 24 Hours 03/10/19 03/11/19 03/12/19 23:59 23:59 23:59 Intake Total 1475 / 1475 240 / 240 Balance 1475 / 1475 240 / 240 General: Awake, Alert, Oriented x 3 HEENT: PERRL, EOMI, Sclera Non Icteric Neck: Supple, Good ROM, No Lymph Node Enlargement Lungs: Clear to auscultation Cardiovascular: Regular Rhythm, Normal S1, Normal S2, No Murmurs, No Rubs, No Gallops Vascular: No Carotid Bruits, Normal Femoral Pulses, Normal Radial Pulses, Normal Dorsalis Pedal Pulse, Normal Posterior Tibial Pulses Abdomen: Bowel Sounds Present, Soft, Non Tender, No HSM, No Organomegaly Extremities: No Cyanosis, No Clubbing, No edema Musculoskeletal: No Erythema Skin: No Rashes Lymphatic: No Lymph Node Enlargement Neurological: No Focal Motor or Sensory Deficit Psych/Mental Status: Appropriate 03/11/19 10:32: WBC 6.5, RBC 4.79, Hgb 14.2, Hct 43.0, MCV 89.8, MCH 29.6, MCHC 33.0, Plt Count 266, MPV 9.2, Immature Gran % (Auto) 3.200 H, Neut % (Auto) 55.5, Lymph % (Auto) 23.4, [place] % (Auto) 8.3, Eos % (Auto) 8.5 H, Baso % (Auto) 1.1 H, Absolute Neuts (auto) 3.6, Nucleated RBC % 0 03/11/19 10:32: Sodium 141, Potassium 4.2, Chloride 109 H, Carbon Dioxide 26.0, Anion Gap 6, BUN 28 H, Creatinine 1.05, Est GFR (MDRD) Af Amer 91, Est GFR (MDRD) Non-Af 75, BUN/Creatinine Ratio 26.7 H, Glucose 99, Calcium 9.0, Troponin I 0.048 H 03/11/19 13:25: Troponin I 0.065 H 03/11/19 16:30: Troponin I 0.069 H 03/12/19 06:50: WBC 5.9, RBC 4.84, Hgb 14.4, Hct 43.9, MCV 90.7, MCH 29.8, MCHC 32.8, Plt Count 253, MPV 9.3 03/12/19 06:50: Sodium 142, Potassium 4.4, Chloride 107, Carbon Dioxide 27.0, Anion Gap 8, BUN 25 H, Creatinine 1.01, Est GFR (MDRD) Af Amer 95, Est GFR (MDRD) Non-Af 78, BUN/Creatinine Ratio 24.8 H, Glucose 94, Calcium 8.8, Triglyce rides 134, Cholesterol 209 H, LDL Cholesterol 138 H, VLDL Cholesterol 27, HDL Cholesterol 44 Rhythm: EKG: ECHO: Stress Test: Cardiac Cath: PCI: CT Surgery: Holter monitor: EPS: PPM: CXR: Chest CT Scan: Medical Necessity - Tobacco Use Smoking Status: Never smoker Assessment/Plan 1. Chest pain unstable angina * Patient presents with chest discomfort over the last 3 to 4 days with exertion and going away with rest. He has had no rest discomfort. His EKG is normal at this present time and he has had mildly abnormal cardiac enzymes. * My suspicion at this time is that he has unstable angina and will be treated thus: * Aspirin * High intensity statin * Low-dose beta-yaya * Clopidogrel loading * Would recommend cardiac catheterization in the next 48 hours. At the moment he is free of any chest discomfort and has no EKG changes I did discuss with him and his that based on the above there is no reason to perform this over the weekend. In addition we had a long discussion about whether he could be done here or needs to be transferred to the [facility]. After the discussion it was decided by the family that they would prefer it to be done here on Thursday. We would confer afterwards to discuss the results. They appear to be pretty comfortable with the above decision. * No change in condition over the last 24 hours. We will proceed with plan as above. * Thank you for allowing me to participate in the care of your patient. Please don't hesitate to call if any issues arise
--- NOTE | 2019-03-12 13:33 | CM.UR ---
RN CM Assessment Introduced role of RN CM to patient. Patient is alert and able to participate in RN CM Assessment. Care providers, pharmacy, and demographics verified. No family at bedside. Presentation: c/o chest pain w/exertion Admit Dx: NSTEMI Re-Admit: no Barriers/Issues: None PCP: Watson Specialists: Alejandor Abdalla Preferred Pharmacy: [facility]; mail order Insurance: [employer] Benefit: Yes LNOK: , carmelita LW/HPOA: , Carmelita is HPOA. States she is supposed to bring copies in. Living Arrangements: 2 story home, 1 step in, lives with . No accessibility issues. ADL?s: Independent Transportation: self DME: Walker, grab bars DME co: no preference HHC: None SNF: [facility] after hip replacement. Goal: home DC PLAN: Home, no needs anticipated. Maine Henderson RN, CCM.
[2019-03-12] MEDS: Atorvastatin Calcium 80 MG Tablet PO (21:28)
[2019-03-13] VITALS (15 sets, daily range): BP systolic 107–127; BP diastolic 62–81; PULSE 52–67; RESP 16–18; TEMP 36.4–37; O2SAT 95–100
[2019-03-13 05:28] LABS: Hematocrit 43.3 % (40-54); Hemoglobin 14.1 g/dL (13.0-16.5); Mean Corp Hgb Conc 32.6 g/dL (32-36); Mean Corpuscular Hgb 29.6 pg (27.0-32.0); Mean Corpuscular Volume 90.8 fL (80-94); Mean Platelet Vol. 9.1 fl (6.2-12.0); Platelet Count 256 K/mm3 (150-450); RBC Distribution Width CV 14.1 % (11.6-14.6); RBC Distribution Width SD 47.1 fl (35.1-43.9); Red Blood Count 4.77 M/mm3 (4.6-6.2); White Blood Count 7.3 K/mm3 (4.4-11.0)
[2019-03-13] MEDS: Levothyroxine 150 MCG Tablet 300 MCG PO (05:38)
[2019-03-13 05:48] LABS: Anion Gap 5 (5-15); BUN 26 mg/dL (7-18); BUN/Creat Ratio 19.8 RATIO (10-20); Calcium,Total 8.7 mg/dL (8.5-10.1); Chloride 104 mmol/L (98-107); Creatinine, Serum 1.31 mg/dL (0.70-1.30); EST Glomerular Filtration Rate 58 mL/min (>60); Est Glom Filt Rate - Afr Amer 70 mL/min (>60); Estimated Creatinine Clearance 57.27 ml/min; Glucose 93 mg/dL (74-106); Potassium 4.4 mmol/L (3.5-5.1); Sodium Level 139 mmol/L (136-145)
--- NOTE | 2019-03-13 07:35 | PCM.PROGNOTE ---
Patient Problems: Active and Suspected Problems Exertional chest pain (Acute) Elevated troponin I level (Acute) Subjective: Follow-up; acute coronary syndrome. Patient was started on IV fluids following slight rise in his creatinine. Scheduled to undergo left heart catheterization on 03/14/2019. Objective: GENERAL: cooperative HEENT: Atraumatic; EYES; Anicteric, Normal Conjunctiva NECK; supple, normal thyroid, RESPIRATORY: Diminished to auscultation CARDIOVASCULAR: Regular S1 S2, GI: soft, normoactive bowel sounds, : No Renal angle tenderness; EXTREMITIES: No edema, no clubbing, MUSCULOSKELETAL: no muscle waisting NEURO: Awake; no lateralizing signs. SKIN: No Rash PSYCH; Flat affect - Physical Exam Vitals/I&O's: Vital Signs Temp Pulse Resp BP Pulse Ox 98.6 F 57 L 16 111/70 95 03/13/19 05:36 03/13/19 07:16 03/13/19 05:36 03/13/19 05:36 03/13/19 05:36 Oxygen Flow Rate (L/min) 2 Oxygen Delivery Method Room Air Weight: 98 kg Body Mass Index (BMI) 30.9 Intake and Output for Last 24 Hours 03/11/19 03/12/19 03/13/19 23:59 23:59 23:59 Intake Total 1475 / 1475 1670 / 1670 100 / 100 Balance 1475 / 1475 1670 / 1670 100 / 100 Laboratory Results 03/12/19 06:50: Sodium 142, Potassium 4.4, Chloride 107, Carbon Dioxide 27.0, Anion Gap 8, BUN 25 H, Creatinine 1.01, Estim Creat Clear Calc 74.28, Est GFR (MDRD) Af Amer 95, Est GFR (MDRD) Non-Af 78, BUN/Creatinine Ratio 24.8 H, Glucose 94, Calcium 8.8, Triglycerides 134, Cholesterol 209 H, LDL Cholesterol 138 H, VLDL Cholesterol 27, HDL Cholesterol 44, TSH 0.19 L 03/13/19 04:30: WBC 7.3, RBC 4.77, Hgb 14.1, Hct 43.3, MCV 90.8, MCH 29.6, MCHC 32.6, RDW Std Deviation 47.1 H, RDW Coeff of Anum 14.1, Plt Count 256, MPV 9.1 03/13/19 04:30: Sodium 139, Potassium 4.4, Chloride 104, Carbon Dioxide 30.0, Anion Gap 5, BUN 26 H, Creatinine 1.31 H, Estim Creat Clear Calc 57.27, Est GFR (MDRD) Af Amer 70, Est GFR (MDRD) Non-Af 58 L, BUN/Creatinine Ratio 19.8, Glucose 93, Calcium 8.7 Current Medications Acetaminophen (Tylenol) 650 mg PO Q6H PRN PRN PRN Reason: Pain Score 1-3/Temp > 100.7 F Al Hydroxide/Mg Hydroxide (Mylanta Ii) 30 ml PO Q6H PRN PRN PRN Reason: Gastric Burning Albuterol Sulfate (Ventolin Aerosols) 2.5 mg INHALATION Q2H PRN PRN PRN Reason: SOB/Wheezing Aspirin (Ecotrin) 81 mg PO DAILY@0800 [facility] Last Admin: 03/12/19 09:31 Dose: 81 mg Documented by: Atorvastatin Calcium (Lipitor) 80 mg PO QHS [facility] Last Admin: 03/12/19 21:28 Dose: 80 mg Documented by: Clopidogrel Bisulfate (Plavix) 75 mg PO DAILY [facility] Last Admin: 03/12/19 09:32 Dose: 75 mg Documented by: Dextrose (D50w Syringe) 0 gm IV X1 PRN; Protocol PRN Reason: Hypoglycemia Enoxaparin Sodium (Lovenox) 100 mg 1 mg/kg (100 mg) SC Q12 [facility] Last Admin: 03/12/19 21:27 Dose: 100 mg Documented by: Glucagon () 1 mg IM .X1 PRN PRN Reason: Hypoglycemia Guaifenesin (Robitussin) 20 ml PO Q4H PRN PRN PRN Reason: COUGH Levothyroxine Sodium (Synthroid) 300 mcg PO DAILY@0600 [facility] Last Admin: 03/13/19 05:38 Dose: 300 mcg Documented by: Magnesium Hydroxide (Milk Of Magnesia) 30 ml PO DAILY PRN PRN PRN Reason: Constipation Melatonin (Melatonin) 3 mg PO QHS PRN PRN PRN Reason: INSOMNIA Metoprolol Tartrate (Lopressor (Beta Cedric)) 12.5 mg PO BID [facility] Last Admin: 03/12/19 21:28 Dose: 12.5 mg Documented by: Multivitamins (Multivitamin) 1 tablet PO DAILYCM [facility] Last Admin: 03/12/19 09:31 Dose: 1 tablet Documented by: Nitroglycerin (Nitrostat) 0.4 mg SUBLINGUAL Q5M PRN PRN Reason: CHEST PAIN Ondansetron HCl (Zofran) 4 mg IV Q8H PRN PRN PRN Reason: NAUSEA/VOMITING Oxycodone HCl (Oxyir) 5 mg PO Q4H PRN PRN PRN Reason: Pain Score 4-5/10 Oxycodone HCl (Oxyir) 10 mg PO Q4H PRN PRN PRN Reason: Pain Score 6-10/10 Sodium Chloride () 10 - 40 ml IV UD PRN PRN Reason: SALINE FLUSH Medical Necessity - Tobacco Use Smoking Status: Never smoker Assessment/Plan All Active Problems Exertional chest pain (Acute) Elevated troponin I level (Acute) Patient is a 68-year-old gentleman presented with exertional chest pain with elevated troponin. 1. Acute NSTEMI ~patient has been admitted to a monitored bed, consult placed to cardiology. As part of patient's management patient was placed on therapeutic Lovenox, aspirin, beta-blockers and nitroglycerin as needed. 2D echo ordered for EF and wall motion abnormality assessment. Definitive management with regards to possible left heart catheterization and intervention deferred to cardiology ?03/12/2019. Patient was seen by Dr. Berger with cardiology patient is currently on optimal medical therapy with plans for patient undergo left heart catheterization on 03/14/2019. 2. Hypothyroidism ~Following trauma with resultant subtotal thyroidectomy; patient is on levothyroxine home dose continued 3. Hypertension ~ blood pressure controlled, he has no medications which he stopped once he lost over 100 pounds 4. Obesity ~With BMI of 32.1 weight loss advised 5. DVT prophylaxis ~ on enoxaparin 6. Acute renal insufficiency ?Patient started on IV fluids to prevent contrast-induced nephropathy in view of patient anticipated left heart catheterization on 03/14/2019. Code Visit Inpatient E&M: 29898 Subs Hosp L2
[2019-03-13] MEDS: Metoprolol Tartrate 25 MG Tablet 12.5 MG PO ×2 (08:16→21:24)
[2019-03-13] MEDS: Enoxaparin 100 MG/ML Syringe SC ×2 (08:16→21:24)
[2019-03-13] MEDS: Clopidogrel Bisulfate 75 MG Tablet PO (08:16)
[2019-03-13] MEDS: Aspirin E.C. 81 MG Tablet PO (08:16)
[2019-03-13] MEDS: Multivitamins,Therapeutic Tablet 1 TABLET PO (08:16)
--- NOTE | 2019-03-13 08:25 | PN.CARD_ITS ---
Subjectve: Patient seen and evaluated. No further chest discomfort. Objective: Vital Signs Temp Pulse Resp BP Pulse Ox 98.0 F 63 16 127/81 H 98 03/13/19 08:04 03/13/19 08:16 03/13/19 08:04 03/13/19 08:16 03/13/19 08:04 Oxygen Flow Rate (L/min) 2 Oxygen Delivery Method Room Air Weight: 216 lb 0.848 oz Body Mass Index (BMI) 30.9 Intake and Output for Last 24 Hours 03/11/19 03/12/19 03/13/19 23:59 23:59 23:59 Intake Total 1475 / 1475 1670 / 1670 100 / 100 Balance 1475 / 1475 1670 / 1670 100 / 100 General: Awake, Alert, Oriented x 3 HEENT: PERRL, EOMI, Sclera Non Icteric Neck: Supple, Good ROM, No Lymph Node Enlargement Lungs: Clear to auscultation Cardiovascular: Regular Rhythm, Normal S1, Normal S2, No Murmurs, No Rubs, No Gallops Vascular: No Carotid Bruits, Normal Femoral Pulses, Normal Radial Pulses, Normal Dorsalis Pedal Pulse, Normal Posterior Tibial Pulses Abdomen: Bowel Sounds Present, Soft, Non Tender, No HSM, No Organomegaly Extremities: No Cyanosis, No Clubbing, No edema Musculoskeletal: No Erythema Skin: No Rashes Lymphatic: No Lymph Node Enlargement Neurological: No Focal Motor or Sensory Deficit Psych/Mental Status: Appropriate 03/13/19 04:30: WBC 7.3, RBC 4.77, Hgb 14.1, Hct 43.3, MCV 90.8, MCH 29.6, MCHC 32.6, Plt Count 256, MPV 9.1 03/13/19 04:30: Sodium 139, Potassium 4.4, Chloride 104, Carbon Dioxide 30.0, Anion Gap 5, BUN 26 H, Creatinine 1.31 H, Est GFR (MDRD) Af Amer 70, Est GFR (MDRD) Non-Af 58 L, BUN/Creatinine Ratio 19.8, Glucose 93, Calcium 8.7 Rhythm: EKG: ECHO: Stress Test: Cardiac Cath: PCI: CT Surgery: Holter monitor: EPS: PPM: CXR: Chest CT Scan: Medical Necessity - Tobacco Use Smoking Status: Never smoker Assessment/Plan 1. Chest pain unstable angina * Patient presents with chest discomfort over the last 3 to 4 days with exertion and going away with rest. He has had no rest discomfort. His EKG is normal at this present time and he has had mildly abnormal cardiac enzymes. * My suspicion at this time is that he has unstable angina and will be treated thus: * Aspirin * High intensity statin * Low-dose beta-yaya * Clopidogrel loading * Would recommend cardiac catheterization in the next 24 hours. The risk benefits alternatives have been explained to him he understands and agrees to proceed. * Thank you for allowing me to participate in the care of your patient. Please don't hesitate to call if any issues arise
[2019-03-13] MEDS: 0.9% Normal Saline 1,000 ML 75 ML IV ×2 (09:24→21:25)
[2019-03-13] MEDS: 0.9% Saline Lock 10 ML Syringe IV (09:25)
[2019-03-13] MEDS: Atorvastatin Calcium 80 MG Tablet PO (21:24)
[2019-03-14] VITALS (18 sets, daily range): BP systolic 115–137; BP diastolic 66–82; PULSE 51–61; RESP 16–18; TEMP 36.5–36.7; O2SAT 93–99
[2019-03-14] MEDS: 0.9% Normal Saline 1,000 ML 15 ML IV ×2 (05:09→07:52)
[2019-03-14] MEDS: Aspirin E.C. 81 MG Tablet PO (05:10)
[2019-03-14] MEDS: Levothyroxine 150 MCG Tablet 300 MCG PO (05:10)
[2019-03-14] MEDS: Clopidogrel Bisulfate 75 MG Tablet PO (05:10)
[2019-03-14 05:59] LABS: Absolute Lymphocyte Count 1.87 X10^3/uL (0.83-4.51); Absolute Neutrophil Count 3.2 X10^3/uL (2.0-7.7); Basophil# 0.06 X10^3/uL; Basophil% 0.9 % (0-1); Eosinophil# 0.54 X10^3/uL; Eosinophils% 8.4 % (0-5); Hematocrit 40.8 % (40-54); Hemoglobin 13.5 g/dL (13.0-16.5); Lymphocyte # 1.87 X10^3/ul (4.0); Lymphocyte % 29.2 % (19-41); Mean Corp Hgb Conc 33.1 g/dL (32-36); Mean Corpuscular Hgb 29.9 pg (27.0-32.0); Mean Corpuscular Volume 90.5 fL (80-94); Mean Platelet Vol. 8.9 fl (6.2-12.0); Monocyte# 0.55 X10^3/uL; Monocyte% 8.6 % (0-10); NRBC Flagged by Analyzer 0 % (0-5); Neutrophil # 3.18 X10^3/uL (2.7-7.7); Neutrophil % 49.8 % (47-70); Platelet Count 234 K/mm3 (150-450); RBC Distribution Width SD 46.8 fl (35.1-43.9); Red Blood Count 4.51 M/mm3 (4.6-6.2); White Blood Count 6.4 K/mm3 (4.4-11.0)
[2019-03-14 06:24] LABS: Anion Gap 4 (5-15); BUN 26 mg/dL (7-18); BUN/Creat Ratio 22.2 RATIO (10-20); Calcium,Total 8.4 mg/dL (8.5-10.1); Chloride 108 mmol/L (98-107); Creatinine, Serum 1.17 mg/dL (0.70-1.30); EST Glomerular Filtration Rate 66 mL/min (>60); Est Glom Filt Rate - Afr Amer 80 mL/min (>60); Estimated Creatinine Clearance 64.13 ml/min; Glucose 91 mg/dL (74-106); Magnesium 2.1 mg/dL (1.6-2.6); Potassium 4.3 mmol/L (3.5-5.1); Sodium Level 139 mmol/L (136-145)
--- NOTE | 2019-03-14 07:57 | NURSING ---
This RN called report to mill laborerpaula Salinas RN.
--- NOTE | 2019-03-14 08:30 | PCM.PN.HOSP ---
Patient Problems: Active and Suspected Problems Exertional chest pain (Acute) Elevated troponin I level (Acute) Reason for Visit: Follow-up unstable angina Subjective: Scheduled to undergo left heart catheterization Objective: GENERAL: cooperative HEENT: Atraumatic; EYES; Anicteric, Normal Conjunctiva NECK; supple, normal thyroid, RESPIRATORY: Diminished to auscultation CARDIOVASCULAR: Regular S1 S2, GI: soft, normoactive bowel sounds, : No Renal angle tenderness; EXTREMITIES: No edema, no clubbing, MUSCULOSKELETAL: no muscle waisting NEURO: Awake; no lateralizing signs. SKIN: No Rash PSYCH; Flat affect Vitals/I&O's: Vital Signs Temp Pulse Resp BP Pulse Ox 97.9 F 59 L 16 124/80 H 99 03/14/19 05:00 03/14/19 06:46 03/14/19 05:00 03/14/19 05:00 03/14/19 05:00 Oxygen Flow Rate (L/min) 2 Oxygen Delivery Method Room Air Weight: 98 kg Body Mass Index (BMI) 30.9 Intake and Output for Last 24 Hours 03/12/19 03/13/19 03/14/19 23:59 23:59 23:59 Intake Total 1670 / 1670 2121.25 / 2361.25 1065.75 / 1065.75 Balance 1670 / 1670 2121.25 / 2361.25 1065.75 / 1065.75 Laboratory Results 03/14/19 05:35: WBC 6.4, RBC 4.51 L, Hgb 13.5, Hct 40.8, MCV 90.5, MCH 29.9, MCHC 33.1, RDW Std Deviation 46.8 H, RDW Coeff of Anum 14.0, Plt Count 234, MPV 8.9, Immature Gran % (Auto) 3.100 H, Neut % (Auto) 49.8, Lymph % (Auto) 29.2, [place] % (Auto) 8.6, Eos % (Auto) 8.4 H, Baso % (Auto) 0.9, Absolute Neuts (auto) 3.2, Absolute Lymphs (auto) 1.87, Nucleated RBC % 0 03/14/19 05:35: Sodium 139, Potassium 4.3, Chloride 108 H, Carbon Dioxide 27.0, Anion Gap 4 L, BUN 26 H, Creatinine 1.17, Estim Creat Clear Calc 64.13, Est GFR (MDRD) Af Amer 80, Est GFR (MDRD) Non-Af 66, BUN/Creatinine Ratio 22.2 H, Glucose 91, Calcium 8.4 L, Magnesium 2.1 Current Medications Acetaminophen (Tylenol) 650 mg PO Q6H PRN PRN PRN Reason: Pain Score 1-3/Temp > 100.7 F Al Hydroxide/Mg Hydroxide (Mylanta Ii) 30 ml PO Q6H PRN PRN PRN Reason: Gastric Burning Albuterol Sulfate (Ventolin Aerosols) 2.5 mg INHALATION Q2H PRN PRN PRN Reason: SOB/Wheezing Aspirin (Ecotrin) 81 mg PO DAILY@0800 [facility] Last Admin: 03/14/19 05:10 Dose: 81 mg Documented by: Atorvastatin Calcium (Lipitor) 80 mg PO QHS [facility] Last Admin: 03/13/19 21:24 Dose: 80 mg Documented by: Clopidogrel Bisulfate (Plavix) 75 mg PO DAILY [facility] Last Admin: 03/14/19 05:10 Dose: 75 mg Documented by: Dextrose (D50w Syringe) 0 gm IV X1 PRN; Protocol PRN Reason: Hypoglycemia Enoxaparin Sodium (Lovenox) 100 mg 1 mg/kg (100 mg) SC Q12 [facility] Last Admin: 03/13/19 21:24 Dose: 100 mg Documented by: Glucagon () 1 mg IM .X1 PRN PRN Reason: Hypoglycemia Guaifenesin (Robitussin) 20 ml PO Q4H PRN PRN PRN Reason: COUGH Sodium Chloride () 1,000 mls @ 75 mls/hr IV .[id number] [facility] Last Infusion: 03/14/19 07:53 Dose: 0 mls/hr Documented by: Sodium Chloride () 1,000 mls @ 15 mls/hr IV .Q48H [facility] Last Admin: 03/14/19 07:52 Dose: 15 mls/hr Documented by: Levothyroxine Sodium (Synthroid) 300 mcg PO DAILY@0600 [facility] Last Admin: 03/14/19 05:10 Dose: 300 mcg Documented by: Magnesium Hydroxide (Milk Of Magnesia) 30 ml PO DAILY PRN PRN PRN Reason: Constipation Melatonin (Melatonin) 3 mg PO QHS PRN PRN PRN Reason: INSOMNIA Metoprolol Tartrate (Lopressor (Beta Cedric)) 12.5 mg PO BID [facility] Last Admin: 03/14/19 05:11 Dose: Not Given Documented by: [facility] Admin: 03/13/19 08:16 Dose: 1 tablet Documented by: Nitroglycerin (Nitrostat) 0.4 mg SUBLINGUAL Q5M PRN PRN Reason: CHEST PAIN Ondansetron HCl (Zofran) 4 mg IV Q8H PRN PRN PRN Reason: NAUSEA/VOMITING Oxycodone HCl (Oxyir) 5 mg PO Q4H PRN PRN PRN Reason: Pain Score 4-5/10 Oxycodone HCl (Oxyir) 10 mg PO Q4H PRN PRN PRN Reason: Pain Score 6-10/10 Sodium Chloride () 10 - 40 ml IV UD PRN PRN Reason: SALINE FLUSH Last Admin: 03/13/19 09:25 Dose: 10 ml Documented by: STROKE Vital Signs/Narrative: Vital Signs Temp Pulse Resp BP Pulse Ox 03/14/19 06:46 59 L 03/14/19 05:11 51 L 03/14/19 05:00 97.9 F 54 L 16 124/80 H 99 Medical Necessity - Tobacco Use Smoking Status: Never smoker Assessment/Plan All Active Problems Exertional chest pain (Acute) Elevated troponin I level (Acute) Patient is a 68-year-old gentleman presented with exertional chest pain with elevated troponin. 1. Acute NSTEMI ~patient has been admitted to a monitored bed, consult placed to cardiology. As part of patient's management patient was placed on therapeutic Lovenox, aspirin, beta-blockers and nitroglycerin as needed. 2D echo ordered for EF and wall motion abnormality assessment. Definitive management with regards to possible left heart catheterization and intervention deferred to cardiology ?03/12/2019. Patient was seen by Dr. Berger with cardiology patient is currently on optimal medical therapy with plans for patient undergo left heart catheterization on 03/14/2019. 2. Hypothyroidism ~Following trauma with resultant subtotal thyroidectomy; patient is on levothyroxine home dose continued 3. Hypertension ~ blood pressure controlled, he has no medications which he stopped once he lost over 100 pounds 4. Obesity ~With BMI of 32.1 weight loss advised 5. DVT prophylaxis ~ on enoxaparin 6. Acute renal insufficiency ?Patient started on IV fluids to prevent contrast-induced nephropathy in view of patient anticipated left heart catheterization on 03/14/2019. Code Visit Inpatient E&M: 50538 Subs Hosp L2
--- NOTE | 2019-03-14 09:18 | CASEMGMT ---
According to the [facility] website, the following are in-network tertiary facilities: [facility], [place], [facility], [facility], [facility], [facility], [facility], [place], [facility], and . Elizabeth LINDSAY CM
--- NOTE | 2019-03-14 09:37 | PN.CARD_ITS ---
Subjectve: Patient seen and evaluated. Appears to be stable. Objective: Vital Signs Temp Pulse Resp BP Pulse Ox 97.9 F 59 L 16 124/80 H 99 03/14/19 05:00 03/14/19 06:46 03/14/19 05:00 03/14/19 05:00 03/14/19 05:00 Oxygen Flow Rate (L/min) 2 Oxygen Delivery Method Room Air Weight: 216 lb 0.848 oz Body Mass Index (BMI) 30.9 Intake and Output for Last 24 Hours 03/12/19 03/13/19 03/14/19 23:59 23:59 23:59 Intake Total 1670 / 1670 2121.25 / 2361.25 1065.75 / 1065.75 Balance 1670 / 1670 2121.25 / 2361.25 1065.75 / 1065.75 General: Awake, Alert, Oriented x 3 HEENT: PERRL, EOMI, Sclera Non Icteric Neck: Supple, Good ROM, No Lymph Node Enlargement Lungs: Clear to auscultation Cardiovascular: Regular Rhythm, Normal S1, Normal S2, No Murmurs, No Rubs, No Gallops Vascular: No Carotid Bruits, Normal Femoral Pulses, Normal Radial Pulses, Normal Dorsalis Pedal Pulse, Normal Posterior Tibial Pulses Abdomen: Bowel Sounds Present, Soft, Non Tender, No HSM, No Organomegaly Extremities: No Cyanosis, No Clubbing, No edema Musculoskeletal: No Erythema Skin: No Rashes Lymphatic: No Lymph Node Enlargement Neurological: No Focal Motor or Sensory Deficit Psych/Mental Status: Appropriate 03/14/19 05:35: WBC 6.4, RBC 4.51 L, Hgb 13.5, Hct 40.8, MCV 90.5, MCH 29.9, MCHC 33.1, Plt Count 234, MPV 8.9, Immature Gran % (Auto) 3.100 H, Neut % (Auto) 49.8, Lymph % (Auto) 29.2, [place] % (Auto) 8.6, Eos % (Auto) 8.4 H, Baso % (Auto) 0.9, Absolute Neuts (auto) 3.2, Nucleated RBC % 0 03/14/19 05:35: Sodium 139, Potassium 4.3, Chloride 108 H, Carbon Dioxide 27.0, Anion Gap 4 L, BUN 26 H, Creatinine 1.17, Est GFR (MDRD) Af Amer 80, Est GFR (MDRD) Non-Af 66, BUN/Creatinine Ratio 22.2 H, Glucose 91, Calcium 8.4 L, Ma gnesium 2.1 Rhythm: EKG: ECHO: Stress Test: Cardiac Cath: PCI: CT Surgery: Holter monitor: EPS: PPM: CXR: Chest CT Scan: Medical Necessity - Tobacco Use Smoking Status: Never smoker Assessment/Plan 1. Chest pain unstable angina * Patient presents with chest discomfort over the last 3 to 4 days with exertion and going away with rest. He has had no rest discomfort. His EKG is normal at this present time and he has had mildly abnormal cardiac enzymes. * He underwent cardiac catheterization with demonstrated the following: Moderate calcified left main coronary artery with 20% stenosis. Left anterior descending artery with significant calcification and long 70 to 8 0% stenotic lesion. Dominant left circumflex artery with first obtuse marginal branch with 80% proximal stenosis. Mid left circumflex artery with sequential 80% stenotic lesions. Nondominant right coronary artery. Preserved ejection fraction. Based on the above angiographic findings the patient will be recommended to undergo coronary artery bypass surgery. The patient to be transferred after appropriate accepting surgeon has been located. * * * Thank you for allowing me to participate in the care of your patient. Please don't hesitate to call if any issues arise
--- NOTE | 2019-03-14 09:52 | CL.D_ITS ---
Patient Name: AYSE MAZARIEGOS Study Date: 03/14/2019 Performing: Ernie Berger MD Ht: 70 inches 178 cm : 1950 Wt: 216.3 lbs 98 kg Age: 68 Gender: male BSA: 2.16 PROCEDURE(S) PERFORMED [id number]/COR/LV CLINICAL PROFILE AND INDICATIONS Indications: ACS <= 24 hrs Heart Failure: None Stress/Imaging Stress/Image Study Performed: No CAD Presentations: Unstable angina. CONCLUSIONS Multivessel disease involving a calcified left main and extensively calcified left anterior descendin g artery which are long 80% stenosis noted in the proximal and mid left anterior descending artery, f ocal 85% stenosis noted in the first obtuse marginal branch, long 80% stenosis noted in the mid and d istal dominant left circumflex artery. RECOMMENDATIONS Surgery consult for coronary revascularization DESCRIPTION OF PROCEDURE The patient arrived to the procedure lab. The risks and benefits of the procedure as well as a full d escription of our services here and current unavailability of surgical backup were fully explained to the patient and/or their significant other prior to the catheterization. The Timeout was completed, verifying the correct patient and procedure. The patient's procedural site was prepped and draped in the usual fashion. Local anesthetic was given subcutaneously to right radial region with Lidocaine 2% . Using a modified Seldinger technique, arterial access was obtained via the right radial artery, a 6 Fr sheath was inserted. Left Coronary Artery selective angiography was performed in multiple views u sing a 5 Fr. 4.0 Daven[place] catheter. Right Coronary Artery selective angiography was then performed in mu ltiple views using a 5 Fr. 4.0 Davenport catheter. Left Ventriculography was performed in WALTERS projection using a 5 Fr. Pigtail catheter. LV to AO pullback pressures were then recorded.The arterial sheath was pulled and a TR Band was applied for hemostasis 12cc Air inserted. The arterial s citlaly was pulled and a TR Band was applied for hemostasis 14cc Air in serted CORONARY ANGIOGRAPHY DOMINANCE: Left Dominant LEFT HEART ASSESSMENT Left Ventricular Ejection Fraction: by LV Gram 65 % Normal LV wall motion Normal Left Ventricular systolic function LEFT MAIN: Moderate calcification, 20 % Stenosis LEFT ANTERIOR DESCENDING ARTERY: Moderate calcification PROX LAD: long 70 % Stenosis MID LAD: long 80 pct % Stenosis CIRCUMFLEX ARTERY: MID CIRC: long 80 % Stenosis DISTAL CIRC: long 80 % Stenosis OM 1: Proximal - 85 % Stenosis RIGHT CORONARY ARTERY: Non-obstructive COMPLICATIONS No Complications PROCEDURE MEDICATIONS Fentanyl 50 mcg IV Versed 1 mg IV Oxygen: 2 L/min via nasal cannula Oxygen: 3 L/min via nasal cannula Heparin diluted in 23cc Heparinized saline. Patient given 10cc IA of this solution. 03/14/2019 09:05: 06 Verapamil 2.5mg, Ntg 100mcgs, 2000 units of Heparin diluted in 23cc Heparinized saline. Patient give n 10cc IA of this solution. 03/14/2019 09:05:06 SUMMARY OF HEMODYNAMIC DATA Time AIR REST ECG 08:11:39 AO 98/58 (77) SA 09:06:00 LV 104/-9, 2 09:18:54 LV 94/-8, -1 09:19:00 LV 107/-2, 4 09:19:46 LVp 109/-2, 2 09:19:49 AOp 110/53 (78) 09:19:54 Signed By Ernie Berger MD On 03/14/2019 9:52:01 AM Ernie Berger MD
[2019-03-14] MEDS: Multivitamins,Therapeutic Tablet 1 TABLET PO (09:58)
[2019-03-14] MEDS: 0.9% Normal Saline 1,000 ML 75 ML IV (09:59)
--- NOTE | 2019-03-14 11:02 | DCINST_ITS ---
- Discharge Diagnoses Current Active Problems: Current Active and Chronic Problems Exertional chest pain (Acute) Elevated troponin I level (Acute) You will use the following diet at home:: Cardiac Allergies/Adverse Reactions: Allergies No Known Allergies Allergy (Verified 03/11/19 10:49) Medications to take at Discharge Aspirin [Aspirin, Baby] 81 mg PO DAILY@0800 03/28/13 Levothyroxine Sodium [Synthroid] 300 mcg PO DAILY 03/28/13 Cyanocobalamin (Vitamin B-12) [B-12] 5,000 mcg SL DAILY 03/11/19 Primary Care Physician: Joesph Chaudhari DO [Primary Care Provider] - Please follow up with your Primary Care Physician in: in 1-2 weeks Test Results: Test results from this visit will be discussed in further detail at your follow- up appointment, if applicable. Proposed Discharge Date: 03/14/19
--- NOTE | 2019-03-14 11:02 | PCM.DC.SUM ---
Discharge Date and Diagnosis Date of Admission: 03/11/19 Date of Discharge: 03/14/19 - Primary Discharge Diagnosis Active and Suspected Problems Exertional chest pain (Acute) Elevated troponin I level (Acute) - Secondary Discharge Diagnosis Chronic Problems Hypothyroidism (Chronic) Status post partial thyroidectomy due to trauma Hypertension (Chronic) Hospital Course and Treatment Imaging Results: Clinical Impression(s) from Imaging Studies Chest X-Ray 03/11/19 11:30 IMPRESSION: Normal x-ray examination of the chest. Electronically Signed: Pb Harris, at 12:14 EST Tel , Service support , Summary of Care Provided: Patient is a 68-year-old gentleman presented with exertional chest pain with elevated troponin. 1. Acute NSTEMI ~patient has been admitted to a monitored bed, consult placed to cardiology. As part of patient's management patient was placed on therapeutic Lovenox, aspirin, beta-blockers and nitroglycerin as needed. 2D echo ordered for EF and wall motion abnormality assessment. Definitive management with regards to possible left heart catheterization and intervention deferred to cardiology Underwent left heart catheterization on 03/14/2019 findings Moderate calcified left main coronary artery with 20% stenosis. Left anterior descending artery with significant calcification and long 70 to 80% stenotic lesion. Dominant left circumflex artery with first obtuse marginal branch with 80% proximal stenosis. Mid left circumflex artery with sequential 80% stenotic lesions. Nondominant right coronary artery. Preserved ejection fraction. Based on the findings Dr. Berger with cardiology recommended for patient to be transferred to a tertiary care center for CABG. He did arrange for patient to be transferred to [facility]. 2. Hypothyroidism ~Following trauma with resultant subtotal thyroidectomy; patient is on levothyroxine home dose continued 3. Hypertension ~ blood pressure controlled, he has no medications which he stopped once he lost over 100 pounds 4. Obesity ~With BMI of 32.1 weight loss advised 5. DVT prophylaxis ~ on enoxaparin 6. Acute renal insufficiency ?Patient started on IV fluids to prevent contrast-induced nephropathy in view of patient anticipated left heart catheterization on 03/14/2019. Based on the above angiographic findings the patient will be recommended to undergo coronary artery bypass surgery. The patient to be transferred after appropriate accepting surgeon has been located. Objective: GENERAL: cooperative HEENT: Atraumatic; EYES; Anicteric, Normal Conjunctiva NECK; supple, normal thyroid, RESPIRATORY: Diminished to auscultation CARDIOVASCULAR: Regular S1 S2, GI: soft, normoactive bowel sounds, : No Renal angle tenderness; EXTREMITIES: No edema, no clubbing, MUSCULOSKELETAL: no muscle waisting NEURO: Awake; no lateralizing signs. SKIN: No Rash PSYCH; Flat affect - Physical Exam Vitals/I&O's: Vital Signs Temp Pulse Resp BP Pulse Ox 97.9 F 59 L 18 122/69 H 94 03/14/19 10:45 03/14/19 10:45 03/14/19 10:45 03/14/19 10:45 03/14/19 10:45 Oxygen Flow Rate (L/min) 2 Oxygen Delivery Method Room Air Weight: 98 kg Body Mass Index (BMI) 30.9 Intake and Output for Last 24 Hours 03/12/19 03/13/19 03/14/19 23:59 23:59 23:59 Intake Total 1670 / 1670 2121.25 / 2361.25 1065.75 / 1065.75 Balance 1670 / 1670 2121.25 / 2361.25 1065.75 / 1065.75 Laboratory Results 03/14/19 05:35: WBC 6.4, RBC 4.51 L, Hgb 13.5, Hct 40.8, MCV 90.5, MCH 29.9, MCHC 33.1, RDW Std Deviation 46.8 H, RDW Coeff of Anum 14.0, Plt Count 234, MPV 8.9, Immature Gran % (Auto) 3.100 H, Neut % (Auto) 49.8, Lymph % (Auto) 29.2, Mobile % (Auto) 8.6, Eos % (Auto) 8.4 H, Baso % (Auto) 0.9, Absolute Neuts (auto) 3.2, Absolute Lymphs (auto) 1.87, Nucleated RBC % 0 03/14/19 05:35: Sodium 139, Potassium 4.3, Chloride 108 H, Carbon Dioxide 27.0, Anion Gap 4 L, BUN 26 H, Creatinine 1.17, Estim Creat Clear Calc 64.13, Est GFR (MDRD) Af Amer 80, Est GFR (MDRD) Non-Af 66, BUN/Creatinine Ratio 22.2 H, Glucose 91, Calcium 8.4 L, Magnesium 2.1 Current Medications Acetaminophen (Tylenol) 650 mg PO Q6H PRN PRN PRN Reason: Pain Score 1-3/Temp > 100.7 F Al Hydroxide/Mg Hydroxide (Mylanta Ii) 30 ml PO Q6H PRN PRN PRN Reason: Gastric Burning Albuterol Sulfate (Ventolin Aerosols) 2.5 mg INHALATION Q2H PRN PRN PRN Reason: SOB/Wheezing Aspirin (Ecotrin) 81 mg PO DAILY@0800 [facility] Last Admin: 03/14/19 05:10 Dose: 81 mg Documented by: Atorvastatin Calcium (Lipitor) 80 mg PO QHS [facility] Last Admin: 03/13/19 21:24 Dose: 80 mg Documented by: Dextrose (D50w Syringe) 0 gm IV X1 PRN; Protocol PRN Reason: Hypoglycemia Enoxaparin Sodium (Lovenox) 100 mg 1 mg/kg (100 mg) SC Q12 [facility] Last Admin: 03/14/19 09:44 Dose: Not Given Documented by: Glucagon () 1 mg IM .X1 PRN PRN Reason: Hypoglycemia Guaifenesin (Robitussin) 20 ml PO Q4H PRN PRN PRN Reason: COUGH Sodium Chloride () 1,000 mls @ 75 mls/hr IV .[id number] [facility] Last Infusion: 03/14/19 09:58 Dose: Infused Documented by: Sodium Chloride () 1,000 mls @ 15 mls/hr IV .Q48H [facility] Last Admin: 03/14/19 07:52 Dose: 15 mls/hr Documented by: Sodium Chloride () 1,000 mls @ 75 mls/hr IV .[id number] [facility] Stop: 03/14/19 12:34 Last Admin: 03/14/19 09:59 Dose: 75 mls/hr Documented by: Levothyroxine Sodium (Synthroid) 300 mcg PO DAILY@0600 [facility] Last Admin: 03/14/19 05:10 Dose: 300 mcg Documented by: Magnesium Hydroxide (Milk Of Magnesia) 30 ml PO DAILY PRN PRN PRN Reason: Constipation Melatonin (Melatonin) 3 mg PO QHS PRN PRN PRN Reason: INSOMNIA Metoprolol Tartrate (Lopressor (Beta Cedric)) 12.5 mg PO BID [facility] Last Admin: 03/14/19 05:11 Dose: Not Given Documented by: [facility] Last Admin: 03/14/19 09:58 Dose: 1 tablet Documented by: Nitroglycerin (Nitrostat) 0.4 mg SUBLINGUAL Q5M PRN PRN Reason: CHEST PAIN Ondansetron HCl (Zofran) 4 mg IV Q8H PRN PRN PRN Reason: NAUSEA/VOMITING Oxycodone HCl (Oxyir) 5 mg PO Q4H PRN PRN PRN Reason: Pain Score 4-5/10 Oxycodone HCl (Oxyir) 10 mg PO Q4H PRN PRN PRN Reason: Pain Score 6-10/10 Sodium Chloride () 10 - 40 ml IV UD PRN PRN Reason: SALINE FLUSH Last Admin: 03/13/19 09:25 Dose: 10 ml Documented by: Home Medications: Medications to take at Discharge Aspirin [Aspirin, Baby] 81 mg PO DAILY@0800 03/28/13 Levothyroxine Sodium [Synthroid] 300 mcg PO DAILY 03/28/13 Cyanocobalamin (Vitamin B-12) [B-12] 5,000 mcg SL DAILY 03/11/19 Primary Care Physician: Joesph Chaudhari DO [Primary Care Provider] - Disposition: Acute care Hospital - [facility] Minutes spent on discharge:: 35 Patient Condition:: Stable Medical Necessity - Tobacco Use Smoking Status: Never smoker Meaningful Use Info Meaningful Use Diagnoses (Choose all that apply): AMI - AMI Aspirin given w/in 24hrs of arrival?: Yes ASA at discharge?: Yes Statins at discharge?: Yes Florin/ARB at discharge?: Yes Beta Cedric at discharge?: Yes Done w/ Acute [place] measure.: Yes - CHF Documented LVEF (%): 60 Code Visit Inpatient E&M: 57030 Disch Hosp
[2019-03-14] MEDS: Enoxaparin 100 MG/ML Syringe SC (20:54)
[2019-03-14] MEDS: Metoprolol Tartrate 25 MG Tablet 12.5 MG PO (20:55)
[2019-03-14] MEDS: Atorvastatin Calcium 80 MG Tablet PO (20:55)
--- NOTE | 2019-03-14 21:08 | NURSING ---
[id number] REPORT CALLED TO KAI LINDSAY AT [facility]. TRANSPORTATION ARRANGED FOR PATIENT BY CHARGE NURSE ASHOK LINDSAY.
== END 2019-03-14 21:25 | disposition short-term general hospital (02) | DRG 282 ==
LOC: ED 11:35 → PCU 12:04
PROVIDERS: Admitting Provider Internal Medicine; Emergency Provider Emergency Medicine; Family Provider Student in an Organized Health Care Education/Training Program; PCP Student in an Organized Health Care Education/Training Program; Referring Provider Internal Medicine; Visit Provider Internal Medicine
DX: I21.4 Non-ST elevation (NSTEMI) myocardial infarction (principal); E89.0 Postprocedural hypothyroidism; E66.9 Obesity, unspecified; Z68.32 Body mass index [BMI] 32.0-32.9, adult; N28.9 Disorder of kidney and ureter, unspecified; I10 Essential (primary) hypertension; I25.110 Atherosclerotic heart disease of native coronary artery with unstable angina pectoris
CPT/HCPCS: 36415; 71046; 80048; 80061; 83735; 84443; 84484; 85025; 85027; 93005; 93306; 93458; 99152; 99153; 99251; 99285; J7030; Q9957; A4216; C1769; C1894; C8929; G0463; Q9967

== ENCOUNTER → 2019-05-04 12:16 | Outpatient (CLI) | payer BC, SELFPAY ==
[2019-05-04 10:58] VITALS: BMI 30.4
--- NOTE | 2019-05-04 12:18 | RAD_ITS ---
STUDY: X-RAY CHEST REASON FOR EXAM: Male, 69 years old. PLEURAL EFFUSION, BYPASS GRAFT TECHNIQUE: PA and lateral views of the chest. COMPARISON: 03/11/2019 FINDINGS: Interval median sternotomy. The lungs are clear and expanded. Small bilateral pleural effusion. Normal size heart. Normal mediastinum and marty. Normal visualized pulmonary arteries. Normal visualized aortic arch and descending thoracic aorta. Normal visualized thoracic spine. Normal visualized ribs, clavicles, and shoulders. There is no demonstrated abnormality of the visualized soft tissue structures of the upper abdomen. RAD/Chest PA and Lateral IMPRESSION: Interval median sternotomy with a small bilateral pleural effusion. Electronically Signed: Spencer Munoz MD at 9:07 EST Tel , Service support ,
== END ==
PROVIDERS: PCP Student in an Organized Health Care Education/Training Program; Referring Provider Internal Medicine Cardiovascular Disease; Visit Provider Internal Medicine Cardiovascular Disease
DX: Z95.1 Presence of aortocoronary bypass graft (principal)
CPT/HCPCS: 71046

== ENCOUNTER → 2019-05-10 07:56 | Outpatient (CLI) | payer BC, SELFPAY ==
[2019-04-08 16:20] VITALS: BMI 32.1
[2019-05-04 10:58] VITALS: BMI 30.4
--- NOTE | 2019-05-10 08:36 | CR.ITP_ITS ---
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 @ [facility] Secondary Diagnosis: I25.10, I10, I48.01, I97.89 Personal Learning Style:: Audio/Visual, Written Barriers to Learning: Vision Impairment Stage of change r/t lifestyle modifications:: Action Gave educational material for:: Treating Heart Disease, Emotions & Heart Disease, Stress Management & Relaxation, Sleep Disorders & Heart Disease, How The Heart Works, What it means to have Heart Disease, How Coronary Artery Disease is Diagnosed, Heart Procedures, What Heart Medications Do, Risk Factors & Modifications, Living an Active Life, Nutrition - Education/Goals Individual Counseling: Initial Assessment: High Blood Pressure - HYPERTENSION, Overweight/Obesity - BMI 30.4 Cardiac Rehabilitation Goals: 1. Maintain the individual as the primary focus of care. 2. To improve the patient's quality of life. 3. Identification of cardiac risk factors and provide cardiac risk factor management. 4. Enhance the psychosocial status of the patient. 5. Reconditioning enough to allow the patient to resume customary activities. 6. Control symptoms of cardiac disease Personal Goals: Initial Assessment: Participate in home exercise program, Improve knowledge of cardiac disease, Improve muscle strength and endurance, Control risk factors (learn risk factor modification) - IMPROVE INACTIVTY BY INCREASING EXERCISE. Scale for measuring improvement of personal goals: Enter appropriate number in Comments. 2 = Unchanged. 3 = Slightly Better. 4 = Moderate Improvement. 5 = Met my Goal Exercise - Initial Assessment - Visit Date of Eval: 05/10/19 Session #:: 0 - PATIENT TO START CR ON 04/13/2019 after checking with his insurance for co-pays limit of sessions. Mets: Pre-: >7 METS for 30 minutes by discharge - Physician Prescribed Exercise Modalities: Treadmill, Rower - 8 weeks post-operative, Airdyne, NuStep Frequency: 3x/week for 12 weeks [36 sessions] Intensity: 60-80% of age predicted maximum heart rate reserve Current METSs:: 3.5 Target Heart Rate:: 100-130 Resting Blood Pressure: 102/56 EKG Type: sinus bradycardia with 1st degree AV block noted. Current Physical Activity or Exercising minutes: 30 minutes daily. - Outcomes & Goals Goals:: Verbalizes understanding of THR, RPE & goal METS by session 6, Documents in home exercise log/reports 30 min aerobic 5 day/wk by DC, Demonstrates accurate pulse taking by DC Exercise - 30-day Assessment - 30-day Reassessments 30 day Reassessments:: Progressing - 30-day Reassessments 30 day Reassessments:: Progressing Exercise - 60-day Assessment - 30-day Reassessments 30 day Reassessments:: Progressing - 30-day Reassessments 30 day Reassessments:: Progressing Exercise - 90-day Assessment - 30-day Reassessments 30 day Reassessments:: Progressing - 30-day Reassessments 30 day Reassessments:: Progressing Exercise - Final/Discharge - 30-day Reassessments 30 day Reassessments:: Progressing - 30-day Reassessments 30 day Reassessments:: Progressing Nutrition - Initial Assessment - Program Goals Nutrition Program Goals: LDL <100 optimal. 100 - 129 Near optimal. 130 - 159 Borderline High. 160 - 189 High. Total Cholesterol <200 desirable. 200 - 239 Borderline High. >/= 240 High. HDL < 40 Low >/=60 High. Triglycerides <150 desirable. <199 optimal. VlDL 5 - 40. HgbA1C <7%. BMI <25 Patient has diagnosis of Hyperlipidemia (ICD E78)?: No - Visit Date of Assessment:: 05/10/19 Session #:: 0 - established ITP today patient to start CR on 05/13/2019. - Cholesterol/Lipids Triglycerides (mg/dL): 134 Total Cholesterol (mg/dL): 150 LDL Cholesterol (mg/dL): 138 HDL Cholesterol (mg/dL): 44 Determine presence & major risk factors that modify LDL goal: Hypertension or hypertensive medication, Age men > 45 years; women >/= 55 years Outcomes/Goals: Pt IDs own risk factors & lifestyle modifications by Session 10, Verbalizes symptoms of angina & response by session 3., Pt independently manages Intervention/Plan: Advocate for lipid panel cholesterol medication if applicable, Instruct on personal lipid levels & lipid goals/NCEP guidelines, Instruct on cholesterol Referral to dietitian:: Yes - Nutritional Counseling & Why Weight programs - Diabetes (Other Core Measures) Diabetes Type: Not Applicable - Weight Mgt (Other Care) Not Applicable: No Height: 5 ft 9 in Weight:: 208 lb BMI: 30.7 Diagnosis Overweight/Obesity BMI> 30% ICD-10 E66: Yes Expected Body Weight: 196 lb Outcomes/Goals: Pt sets, maintains & shows weight loss goal & trend during rehab Intervention/Plan: Instruct on ideal BMI & set weight loss goal w/patient, Assist pt to ID & incorporate diet changes for weight loss by S9, Refer to Structured Weight Loss program as appropriate, Encourage goal of using 250- 300dcal per session for weight loss - Healthy Eating Habits Will attend diet classes:: Yes Outcomes/Goals:: Consume diet rich in vegs,fruits,whole grain/high fiber,fish,lean meat, Limit sat/trans fats,cholesterol & added salts & sugars Intervention/Plan:: Assess current eating habits - Education Gave educational materials for:: Healthy eating Nutrition - 30-Day Assessment - Program Goals Nutrition Program Goals: LDL <100 optimal. 100 - 129 Near optimal. 130 - 159 Borderline High. 160 - 189 High. Total Cholesterol <200 desirable. 200 - 239 Borderline High. >/= 240 High. HDL < 40 Low >/=60 High. Triglycerides <150 desirable. <199 optimal. VlDL 5 - 40. HgbA1C <7%. BMI <25 - Cholesterol/Lipids 30-day Reassessments:: Progressing - Diabetes (Other Core Measures) 30-day Reassessments:: Progressing - Healthy Eating Habits 30-day Reassessments:: Progressing Nutrition - 60-Day Assessment - Program Goals Nutrition Program Goals: LDL <100 optimal. 100 - 129 Near optimal. 130 - 159 Borderline High. 160 - 189 High. Total Cholesterol <200 desirable. 200 - 239 Borderline High. >/= 240 High. HDL < 40 Low >/=60 High. Triglycerides <150 desirable. <199 optimal. VlDL 5 - 40. HgbA1C <7%. BMI <25 - Cholesterol/Lipids 30-day Reassessments:: Progressing - Diabetes (Other Core Measures) 30-day Reassessments:: Progressing - Healthy Eating Habits 30-day Reassessments:: Progressing Nutrition - 90-Day Assessment - Program Goals Nutrition Program Goals: LDL <100 optimal. 100 - 129 Near optimal. 130 - 159 Borderline High. 160 - 189 High. Total Cholesterol <200 desirable. 200 - 239 Borderline High. >/= 240 High. HDL < 40 Low >/=60 High. Triglycerides <150 desirable. <199 optimal. VlDL 5 - 40. HgbA1C <7%. BMI <25 - Cholesterol/Lipids 30-day Reassessments:: Progressing - Diabetes (Other Core Measures) 30-day Reassessments:: Progressing - Healthy Eating Habits 30-day Reassessments:: Progressing Nutrition - Final Assessment - Program Goals Nutrition Program Goals: LDL <100 optimal. 100 - 129 Near optimal. 130 - 159 Borderline High. 160 - 189 High. Total Cholesterol <200 desirable. 200 - 239 Borderline High. >/= 240 High. HDL < 40 Low >/=60 High. Triglycerides <150 desirable. <199 optimal. VlDL 5 - 40. HgbA1C <7%. BMI <25 - Cholesterol/Lipids 30-day Reassessments:: Progressing - Diabetes (Other Core Measures) 30-day Reassessments:: Progressing - Healthy Eating Habits 30-day Reassessments:: Progressing Medical - Initial Assessment - Visit Date of Eval: 05/10/19 Session #:: 0 - established ITP patient starting CR on 05/13/2019 - Medication Compliance Preventative Medication(s):: Aspirin, Clopidogrel/P2Y12 inhibit, Statin/lipid, Beta yaya H/O mental health issues: depression, anxiety, or addiction?: No Doesn?t believe in the benefits of treatment?: No Believes medications are unnecessary or harmful?: No Has a concern about medication side effects?: No Expresses concern over the cost of medications?: No Outcomes/Goals: Verbalizes medications,desired effect & common side effects @ DC, Pt self-reports following medication regimen, Keeps card in wallet w/medications listed by DC Interventions/plans: Instruct on medication effects & side effects, Review medication list w/patient every two weeks, Instruct importance of taking meds as ordered & assist problem solving - Tobacco Use Tobacco Use: Non-smoker Do you use smokeless tobacco?: No - Hypertension Hypertension Diagnosis:: Hypertension ICD-10 I10 Resting Blood Pressure:: 102/56 [employer] [employer] Hypertension Guidelines: [place] [employer] Hypertension Guidelines. Normal BP Less than 120/80. Elevated BP 120/80. Hypertension Stage 1: BP 130-139/80-89. Hypertesnion Stage 2: BP 140 or higher/90 or higher. Hypertension Crisis: BP higher than 180/120 Outcomes/Goals: Able to verbalize/achieve optimal blood pressure <130/80, Incorporates diet changes & exercise for blood pressure control by DC Interventions/plan: Instruct on optimal blood pressure, hypertension & medications, Instruct on effects of sodium, alcohol, stress, exercise &hypertension - Tobacco Cessation Referral Smoking Cessation Referral:: No Individual Education/Counseling:: No Education Schedule Given:: Yes Medical- 30-Day Assessment - Medication Compliance 30-day Reassessments:: Progressing - Tobacco Use 30-day Reassessments:: Progressing - Hypertension [employer] Hypertension Guidelines: [place] [employer] Hypertension Guidelines. Normal BP Less than 120/80. Elevated BP 120/80. Hypertension Stage 1: BP 130-139/80-89. Hypertesnion Stage 2: BP 140 or higher/90 or higher. Hypertension Crisis: BP higher than 180/120 Medical- 60-Day Assessment - Medication Compliance 30-day Reassessments:: Progressing - Tobacco Use 30-day Reassessments:: Progressing - Hypertension [employer] Hypertension Guidelines: [place] Hypertension Guidelines. Normal BP Less than 120/80. Elevated BP 120/80. Hypertension Stage 1: BP 130-139/80-89. Hypertesnion Stage 2: BP 140 or higher/90 or higher. Hypertension Crisis: BP higher than 180/120 Medical- 90-Day Assessment - Medication Compliance 30-day Reassessments:: Progressing - Tobacco Use 30-day Reassessments:: Progressing - Hypertension [employer] Hypertension Guidelines: [place] Hypertension Guidelines. Normal BP Less than 120/80. Elevated BP 120/80. Hypertension Stage 1: BP 130-139/80-89. Hypertesnion Stage 2: BP 140 or higher/90 or higher. Hypertension Crisis: BP higher than 180/120 Medical - Final Assessment - Medication Compliance 30-day Reassessments:: Progressing - Tobacco Use 30-day Reassessments:: Progressing - Hypertension [employer] Hypertension Guidelines: [place] Hypertension Guidelines. Normal BP Less than 120/80. Elevated BP 120/80. Hypertension Stage 1: BP 130-139/80-89. Hypertesnion Stage 2: BP 140 or higher/90 or higher. Hypertension Crisis: BP higher than 180/120 Psychosocial - Initial Assess - VIsit Date of Eval: 05/10/19 Session #:: 0 - established ITP, patient starting CR on 05/13/2019 Not Applicable: No History of previous Mental disease:: No History of Emotional Disorders: Anxious - problem with anxiety and sleeping in the bed. Frequently is lseeping in a recliner. Asymptomatic laying flat, feels i t is mental/anxiety. - Target Goals Target Goals: Assess presence or absence of depression. Using a valid screening tool, maximizes coping skills. Positive support system - Psychosocial Test phq-9 Severity: Severity. 1-4 Minimal Depression. 5-9 Mild Depression. 10-14 Moderate Depression. 15-19 Moderately Sever Depression. 20-27 Severe Depression. Rule: - Outcomes/Goals: See list Psychosocial Outcomes/Goals:: ID's personal stressors & 2 strategies to manage stress by discharge - Intervention/Plan: See List Interventions/Plan:: Assess stressors,coping strategies & signs of derpression on admission, Instruct/assist pt to develop coping & personal stress Mgt strategies, Refer to Behavioral Health if appropriate, Refer to Physician if appropriate, Instruct patient to recognize signs & symptoms of depression, Instruct patient to recog - 30-day Reassessments: 30 day Reassessments:: Progressing Reassessment Notes & Comments:: PATIENT JUST STARTING CR Psychosocial - 30-Day Assess - Target Goals Target Goals: Assess presence or absence of depression. Using a valid screening tool, maximizes coping skills. Positive support system - Psychosocial Test phq-9 Severity: Severity. 1-4 Minimal Depression. 5-9 Mild Depression. 10-14 Moderate Depression. 15-19 Moderately Sever Depression. 20-27 Severe Depression. Rule: - 30-day Reassessments: 30 day Reassessments:: Progressing Psychosocial - 60-Day Assess - Target Goals Target Goals: Assess presence or absence of depression. Using a valid screening tool, maximizes coping skills. Positive support system - Psychosocial Test phq-9 Severity: Severity. 1-4 Minimal Depression. 5-9 Mild Depression. 10-14 Moderate Depression. 15-19 Moderately Sever Depression. 20-27 Severe Depression. Rule: - 30-day Reassessments: 30 day Reassessments:: Progressing Psychosocial - 90-Day Assess - Target Goals Target Goals: Assess presence or absence of depression. Using a valid screening tool, maximizes coping skills. Positive support system - Psychosocial Test phq-9 Severity: Severity. 1-4 Minimal Depression. 5-9 Mild Depression. 10-14 Moderate Depression. 15-19 Moderately Sever Depression. 20-27 Severe Depression. Rule: - 30-day Reassessments: 30 day Reassessments:: Progressing Psychosocial - Final Assessmen - Target Goals Target Goals: Assess presence or absence of depression. Using a valid screening tool, maximizes coping skills. Positive support system - Psychosocial Test phq-9 Severity: Severity. 1-4 Minimal Depression. 5-9 Mild Depression. 10-14 Moderate Depression. 15-19 Moderately Sever Depression. 20-27 Severe Depression. Rule: - 30-day Reassessments: 30 day Reassessments:: Progressing Patient Health Questionnaire Initial Assessment 1. Little interest or pleasure in doing things: Not at all 2. Feeling down, depressed, or hopeless: Not at all 3. Trouble falling or staying asleep, or sleeping too much: Several days 4. Feeling tired or having little energy: Several days 5. Poor appetite or overeating: Not at all 6. Feeling bad about yourself -- or that you are a failure or have let yourself or your family down: Not at all 7. Trouble concentrating on things, such as reading the newspaper or watching te levision: Not at all 8. Moving or speaking so slowly that other people could have noticed. Or the opposite - being so fidgety or restless that you have been moving around a lot more than usual: Not at all 9. Thoughts that you would be better off , or of hurting yourself in some way: Not at all How difficult have these problems made it for you to do your work, take care of things at home, or get along with other people?: Not difficult at all Total Score: 2 MONICA-Q SV Test - Statements CAD is a disease of the arteries in the heart: False Examples of risk factors for heart disease: True Angina is chest pain or discomfort: True The benefits of resistance training include: True Eating more meat and dairy products: True Anti-platelet medications such as aspirin are important: True The only effective way to manage stress: False An exercise warm-up slowly increases heart rate: True Prepared, processed foods usually have high sodium: True Depression is common after a heart attack: True The statin medications lower cholesterol: True To control blood pressure, lower the amount of sodium: True If someone gets chest discomfort during walking: False Transfats are partially hydrogenated vegetable oils: True Sleep apnea that is not treated increases the risk: False To control cholesterol, one should become a vegetarian: False Someone knows if he/she is exercising at the right level: True Diabetes cannot be prevented with exercise & health eating: False Stress is a large risk for heart attack: True A diet that can help lower blood pressure is rich in: True - Total Score Total Correct Responses: 19 Self-Efficacy Initial Assessment We would like to know how confident you are in doing certain activities. Please select your confidence level for:: Select your confidence level for the following using the scale 1-10 where 1 is not at all confident and 10 is totally confident. Your score is the average of all 6 responses. Fatigue: How confident are you that you can keep the fatigue caused by your disease from interfering with the things you want to do? Select Number: 8 Physical Discomfort or Pain: How confident are you that you can keep the physical discomfort or pain of your disease from interfering with the things you want to do? Select Number: 8 Emotional Distress: How confident are you that you can keep the emotional distress caused by your disease from interfering with the things you want to do? Select Number: 9 Other Symptoms or Health Problems: How confident are you that you can keep other symptoms or health problems from interfering with the things you want to do? Select Number: 9 Different Tasks and Activities: How confident are you that you can do the different tasks and activities needed to manage your health condition so as to reduce your need to see a doctor? Select Number: 9 Medication: How confident are you that you can do things other than just taking medication to reduce how much your illness affects your everyday life? Select Number: 9 Total Score:: 8 Nutrition Survey - Nutrition Survey Instructions Scoring Instructions: Scoring is as follows: Yes = 1 points. No = 0 point. Patient score that is >/=12 is considered to be at potential nutritional risk and could benefit from a referral to a registered dietitian. - Nutrition Survey Initial Have you lost >10 lbs over the past 2 months without trying?: No Are you following a special diet at home for diabetes, low fat, or low salt?: Yes Are you interested in meeting with a dietitian for help understanding your diet?: No Do you eat less than 3 meals a day?: No Do you eat fatty meats (tracy, sausage, ribs, etc), fried foods, desserts, large amounts of salad dressings, margarine, butter, or cheese most days?: No Do you have food allergies? [Enter types in comment field]: No Do you eat in restaurants more than 3 times a week?: No Do you season food with salt, seasoning salt, or garlic salt?: No Do you used canned, boxed, frozen meals, or soups, seasoning packets?: No Total Score:: 1
[2019-05-10 09:05] VITALS: BP 102/56; BMI 30.7
--- NOTE | 2019-05-10 09:10 | CR.HP_ITS ---
CR - History & Physical - General Arrival date:: 05/10/19 Arrival time:: 08:00 Date of Referral:: 03/24/19 Date of CR Evaluation:: 05/10/19 Referring Physician: DR JERONIMO Primary Diagnosis: CABG - History of Present Cardiac Event Onset Date: Enter Onset Date of cardiac illnesses in Comment field below Current stable Angina Pectoris:: No Acute Myocardial Infarction within 12 months:: Yes Coronary Artery Bypass Graft:: Yes - X3 Heart valve replacement or repair:: No PTCA or coronary stenting:: No Heart or Heart-Lung Transplant:: No Heart Failure EF <35%:: No Type of Symptoms:: FELT LIKE PULLED MUSCLE IN CHEST Interventions with present event:: CABG X3 Were there any complications?: NONE - Medications Home Medications: Ambulatory Orders Medication Instructions Recorded Aspirin [Aspirin, Baby] 81 mg PO DAILY@0800 03/28/13 Levothyroxine Sodium [Synthroid] 300 mcg PO DAILY 03/28/13 Cyanocobalamin (Vitamin B-12) 5,000 mcg SL DAILY 03/11/19 [B-12] ferrous sulfate 325 mg (65 mg 325 mg PO DAILY 04/11/19 iron) tablet atorvastatin 40 mg tablet 40 mg PO QHS #90 tab 05/04/19 clopidogrel 75 mg tablet 75 mg PO DAILY #90 tab 05/04/19 furosemide 40 mg tablet 40 mg PO DAILY #7 tab 05/04/19 metoprolol succinate 100 mg 100 mg PO DAILY #90 tab 05/04/19 tablet,extended release 24 hr - Allergies Allergies/Adverse Reactions: Allergies No Known Allergies Allergy (Verified 05/04/19 10:58) - Sleep Disorder Evaluation Hx of Sleep Apnea: No Do you snore loudly (louder than talking or can be heard through closed doors)?: No Do you often feel tired/ fatigued/ sleepy during daytime?: No Has anyone observed you stop breathing during sleep?: No History of Hypertension (for STOP score): No - PT USED CPAP IN PAST BUT LOST 100 LBS AND NO LONGER NEEDS-STATES PT AND STOP Results: Negative Advanced Directives - Advanced Directives Power of Inside Wirer: Yes - PT/ ENCOURAGED AND STATED THEY WILL BRING IN COPIES Living Will: Yes Advance Directives Information Provided: No Advance Directives on File: No DNR Order?:: No Past Medical History - Past Medical Illness Medical History: Past Medical History (Last Reviewed 05/04/19 @ 11:45 by Ernie Jeronimo MD) Atherosclerosis of coronary artery of [place] heart without angina pectoris (Chronic) I25.10 Postoperative atrial fibrillation (Acute) Onset Date: 03/25/19 I97.89, I48.91 Essential (primary) hypertension (Chronic) I10 Hypothyroidism E03.9 Status post partial thyroidectomy due to trauma Elevated troponin level Onset Date: 03/11/19 R79.89 Obesity E66.9 - Past Surgical History Surgical History: Past Surgical History (Last Reviewed 05/04/19 @ 11:45 by Ernie Jeronimo MD) H/O coronary artery bypass surgery (Resolved) Onset Date: 03/24/19 Z95.1 CABG x 3 OSPINA-LAD, LOC T graft off SVG-OM1, SVG-LPLB 03/24/19 History of cataract surgery Z98.49 History of left heart catheterization Onset Date: 03/14/19 Z98.890 History of partial thyroidectomy Z90.09 History of thyroidectomy Z90.09 History of total hip replacement Z96.649 Surgical History: - - Status post partial thyroidectomy - Family History Summary Family History: Family History (Last Reviewed 05/04/19 @ 11:45 by Ernie Jeronimo MD) Mother Diabetes Social History - Smoking History Smoking Status: Never smoker - Alcohol Use Alcohol Usage: No - Substance Abuse Hx Substance Use: No - Occupation 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 Left click = Reports ([place]) Review of Present Symptoms: Reports: Wound Healing - EDGES WELL APPROXIMATED, WITHOUT REDNESS OR DRAINAGE OR SWELLING, Heart Arrhythmia/Irregularities - A FIB TWO DAYS AFTER SURGERY BUT NOT SINCE THEN, Appetite - Normal, Sleep - Normal. Denies: Shortness of Breath at Rest, Shortness of Breath with Exertion, PVD, Operative Discomfort, Angina, Dizziness/Lightheadedness, Fatigue - Pain Is Patient Pain Free?: Yes Risk Factor Assessment - Chief Complaint Chief Complaint: CURRENT CABG PT HERE TO INITIAL CR EVALUATION - Vital Signs Temperature: 98.6 F Respiratory Rate: 14 Pulse Ox: 97 Blood Pressure: 96/58 Nailbeds:: PINK - Pulse Pulse Rate: 51 Pulse Rhythm: Regular - Hypertension How long have you been treated?: JUST SINCE CABG On medication(s)?: YES Blood Pressure Sitting - Left Arm: 96/51 - Blood Cholesterol/Lipids Total Cholesterol (mg/dL) Goal = less than 200 mg/dL: 209 HDL Cholesterol (mg/dL) Goal = less than 40 mg/dL: 44 LDL Cholesterol (mg/dL) Goal = less than 70 mg/dL: 138 Triglycerides (mg/dL) Goal = less than 150 mg/dL: 134 - Diabetes Nutrition Referral for Diabetes: No - Obesity Height: 5 ft 9 in Weight:: 208 lb Weight in Pounds: 208.0 lbs Weight Source: Stated by Patient Body Mass Index (BMI): 30.7 Nutritional Referral for Obesity: No - Physical Inactivity Physical Inactivity: Recreational activity - Risk Stratification Risk Guidelines: Lowest Risk: Risk Factor for Smoking, Risk Factor for Diabetes, Risk Factor for Obesity, Risk Factor for Hypertension, Risk Factor for Sedentary Lifestyle, Risk Factor for Depression, Moderate Risk: Risk Factor for Dyslipidemia - For Smoking Smoking Risk Guidelines: Smoking Low Risk: None or quit greater than 6 months ago. Smoking Moderate Risk: Smoker or quit 6 months or less ago. Smoking High Risk: Smoker - For Dyslipidemia Dyslipidemia Risk Guidelines: Low Risk: Moderate Risk: High Risk: 15-25% fat 25.1-29% fat >/= 30% fat. <7% sat fat 7-9% sat fat >9% sat fat. <150 mg chol 150-299 mg chol >/= 300 mg chol. LDL <100 LDL 100-129 LDL >/= 130. Chol/HDL ratio <5.0 Chol/HDL ratio 5.0-6.0 Chol/HDL ratio >6.0. Triglycerides <100 Triglycerides 100-149 Triglycerides >/= 150 - For Diabetes Mellitus Diabetes Risk Guidelines: Diabetes Low Risk: HgA1c <6.5% and/or FBG <120. Diabetes Moderate Risk: HgA1c 6.6-7.9% and/or FBG 120-180. Diabetes High Risk: HgA1c >/= 8% and/or FBG >180 - For Obesity/Overweight Obesity/Overweight Risk Guidelines: Obesity Low Risk: BMI <25.0. Obesity Moderate Risk: BMI 25-29.9. Obesity High Risk: BMI >/= 30.0 - For Hypertension Hypertension Risk Guidelines: Hypertension Low Risk: Systolic <120 and Diastolic <80. Hypertension Moderate Risk: Systolic 120-139 and Diastolic 80-89. Hypertension High Risk: Systolic >/= 140 and Diastolic >/= 90 - For Sedentary Lifestyle Sedentary Lifestyle Risk Guidelines: Sedentary Lifestyle Low Risk: >/= 1,500 kcal/week. Sedentary Lifestyle Moderate Risk: 700-1,499 kcal/week. Sedentary Lifestyle High Risk: < 700 kcal/week - For Depression Depression Risk Guidelines: Depression Low Risk: Not clinically depressed. Depression Moderate Risk: Mildly depressed. Depression High Risk: Clinically depressed - Family History Family History: Family History (Last Reviewed 05/04/19 @ 11:45 by Ernie Jeronimo MD) Mother Diabetes Motivation - Motivation to Participate On a scale of 1 to 10, how prepared are you to commit to attending program?: 10 What do you see as barriers to successfully being able to complete the program?: WORK RELATED THINGS POSSIBLY What do you see as the benefits of succesfully completing the program? In other words, what do you hope to get out of participating in the program?: GET HEALTH AND MUSCLES RESTORED Are there issues you are dealing with that will interfere with completing the program?: POSSIBLY WORK Do you have a spouse or signficant other, family or friends who will help support you to complete the program?: SPOUSE
[2019-05-10 09:22] VITALS: BMI 30.7
[2019-05-10 09:40] VITALS: BP 96/51; BP 96/58; PULSE 51; RESP 14; TEMP 37; O2SAT 97
== END ==
PROVIDERS: PCP Student in an Organized Health Care Education/Training Program; Referring Provider Internal Medicine Cardiovascular Disease; Visit Provider Internal Medicine Cardiovascular Disease
DX: I25.10 Atherosclerotic heart disease of native coronary artery without angina pectoris (principal); I10 Essential (primary) hypertension; I97.89 Other postprocedural complications and disorders of the circulatory system, not elsewhere classified; I48.91 Unspecified atrial fibrillation; E03.9 Hypothyroidism, unspecified; E66.9 Obesity, unspecified; Z68.30 Body mass index [BMI] 30.0-30.9, adult; Z95.1 Presence of aortocoronary bypass graft; Z79.82 Long term (current) use of aspirin; Z79.899 Other long term (current) drug therapy

== ENCOUNTER 2019-05-13 06:42 | Outpatient (RCR) | payer BC, SELFPAY ==
[2019-05-04 10:58] VITALS: BMI 30.4
[2019-05-10 08:57] VITALS: BMI 30.7
== END 2019-05-13 23:59 ==
LOC: CR 06:42
PROVIDERS: PCP Student in an Organized Health Care Education/Training Program; Referring Provider Internal Medicine Cardiovascular Disease; Visit Provider Internal Medicine Cardiovascular Disease
DX: I10 Essential (primary) hypertension (principal); I25.10 Atherosclerotic heart disease of native coronary artery without angina pectoris; I97.89 Other postprocedural complications and disorders of the circulatory system, not elsewhere classified; I48.91 Unspecified atrial fibrillation; Z95.1 Presence of aortocoronary bypass graft
CPT/HCPCS: 93798

== ENCOUNTER 2019-06-10 09:15 | Outpatient (RCR) | payer BC, SELFPAY ==
[2019-05-10 09:05] VITALS: BMI 30.7
[2019-05-10 09:22] VITALS: BMI 30.7
--- NOTE | 2019-06-08 08:47 | CR.ITP_ITS ---
Diagnosis - General Information Admitting Diagnosis: S/P CABG Secondary Diagnosis: I25.10, I10, I97.89, I48.91 Personal Learning Style:: Audio/Visual, Written Barriers to Learning: Hearing Impairment, Vision Impairment Stage of change r/t lifestyle modifications:: Action Gave educational material for:: Treating Heart Disease, Emotions & Heart Disease, Stress Management & Relaxation, Sleep Disorders & Heart Disease, How The Heart Works, What it means to have Heart Disease, How Coronary Artery Disease is Diagnosed, Heart Procedures, What Heart Medications Do, Risk Factors & Modifications, Living an Active Life, Nutrition - Education/Goals Individual Counseling: Initial Assessment: Abnormal Cholesterol Levels, High Blood Pressure, Overweight/Obesity Cardiac Rehabilitation Goals: 1. Maintain the individual as the primary focus of care. 2. To improve the patient's quality of life. 3. Identification of cardiac risk factors and provide cardiac risk factor management. 4. Enhance the psychosocial status of the patient. 5. Reconditioning enough to allow the patient to resume customary activities. 6. Control symptoms of cardiac disease Personal Goals: Initial Assessment: Participate in home exercise program, Improve knowledge of cardiac disease, Improve muscle strength and endurance, Control risk factors (learn risk factor modification) Scale for measuring improvement of personal goals: Enter appropriate number in Comments. 2 = Unchanged. 3 = Slightly Better. 4 = Moderate Improvement. 5 = Met my Goal Exercise - 30-day Assessment - Visit Date of Eval: 06/08/19 Session #:: 11 - Physician Prescribed Exercise Modalities: Treadmill, Airdyne, NuStep Frequency: 3x/week for 12 weeks [36 sessions] Intensity: 60-80% of age predicted maximum heart rate reserve Current METSs:: 6 INCREASED FROM 3.5 Target Heart Rate:: 100-130 Current RPE:: 13 Maximum Excercise HR:: 96 Resting Blood Pressure: 94/48 Maximum Exercise Blood Pressure: 140/70 EKG Type: Sinus Bradycardia to sinus rhythm with 1st degree AVB Current Physical Activity or Exercising minutes: 30 min BID - Outcomes & Goals Goals:: Verbalizes understanding of THR, RPE & goal METS by session 6, Documents in home exercise log/reports 30 min aerobic 5 day/wk by DC, Demonstrates accurate pulse taking by DC - Intervention & Plan Exercise Program Goals: Instruct on personal THR & RPE, Instruct on MET level & personal MET goal, Show patient to take own pulse /validate performance until accurate, Instruct on home exercise - 30-day Reassessments 30 day Reassessments:: Progressing - Physical Activity Home Exercise Physical Activity - Home Exercise: Safe Exercise, Warm-up, Self-monitoring, Cool-Down, Home Exercise > 30 min Daily, Sitting Time <3 hours/daily - Outcomes & Goals Outcomes/Goals: Demonstrates correct Warm-up/exercise Cool-Down (S3) if = 2.5 METs, Verbalizes symptoms of exercise intolerance by Session 3 (S3), Demonstrate safe equipment use (S3) & follows exercise prescrition (6) - Intervention & Plan Plan/Intervention: Instruct warm-up & cool-down if exercising at > 2 METs, Instruct on symptoms of exercise intolerance & actions to take, Instruct & monitor on saf, Assess intial functional capacity & safety risk - 30-day Reassessments 30 day Reassessments:: Progressing Nutrition - 30-Day Assessment - Program Goals Nutrition Program Goals: LDL <100 optimal. 100 - 129 Near optimal. 130 - 159 Borderline High. 160 - 189 High. Total Cholesterol <200 desirable. 200 - 239 Borderline High. >/= 240 High. HDL < 40 Low >/=60 High. Triglycerides <150 desirable. <199 optimal. VlDL 5 - 40. HgbA1C <7%. BMI <25 - Visit Date of Assessment:: 06/08/19 Session #:: 11 - Cholesterol/Lipids Triglycerides (mg/dL): 134 - 03/12/2019 Total Cholesterol (mg/dL): 209 LDL Cholesterol (mg/dL): 138 HDL Cholesterol (mg/dL): 44 Determine presence & major risk factors that modify LDL goal: Hypertension or hypertensive medication, Family history of premature CHD in Male < 55 years: female <65 yearsFa, Age men > 45 years; women >/= 55 years Outcomes/Goals: Pt IDs own risk factors & lifestyle modifications by Session 10, Verbalizes symptoms of angina & response by session 3., Pt independently manages Intervention/Plan: Instruct on personal lipid levels & lipid goals/NCEP guidelines, Instruct on cholesterol Referral to dietitian:: No 30-day Reassessments:: Progressing - Diabetes (Other Core Measures) Diabetes Type: Not Applicable - Weight Mgt (Other Care) Not Applicable: Yes Height: 5 ft 8 in Weight:: 217 lb 8 oz BMI: 33.0 Diagnosis Overweight/Obesity BMI> 30% ICD-10 E66: Yes Diagnosis High BMI/Morbid Obesity BMI> 35% ICD-10 Z68: No Outcomes/Goals: Pt sets, maintains & shows weight loss goal & trend during rehab Intervention/Plan: Instruct on ideal BMI & set weight loss goal w/patient, Assist pt to ID & incorporate diet changes for weight loss by S9, Refer to Structured Weight Loss program as appropriate, Encourage goal of using 250- 300dcal per session for weight loss 30 day Reassessments:: Not Met - Patient has had no weight loss in 30 day period. - Healthy Eating Habits Will attend diet classes:: Yes Outcomes/Goals:: Consume diet rich in vegs,fruits,whole grain/high fiber,fish,lean meat, Limit sat/trans fats,cholesterol & added salts & sugars Intervention/Plan:: Assess current eating habits 30-day Reassessments:: Progressing - Education Gave educational materials for:: Healthy eating Medical- 30-Day Assessment - Visit Date of Eval: 06/08/19 Session #:: 11 - Medication Compliance Preventative Medication(s):: Aspirin H/O mental health issues: depression, anxiety, or addiction?: No Doesn?t believe in the benefits of treatment?: No Believes medications are unnecessary or harmful?: No Has a concern about medication side effects?: No Expresses concern over the cost of medications?: No Outcomes/Goals: Verbalizes medications,desired effect & common side effects @ DC, Pt self-reports following medication regimen, Keeps card in wallet w/medications listed by DC Interventions/plans: Instruct on medication effects & side effects, Review medication list w/patient every two weeks, Instruct importance of taking meds as ordered & assist problem solving 30-day Reassessments:: Progressing - Tobacco Use Tobacco Use: Non-smoker - Hypertension Hypertension Diagnosis:: Hypertension ICD-10 I10 Resting Blood Pressure:: 94/48 [place] [employer] Hypertension Guidelines: [place] [employer] Hypertension Guidelines. Normal BP Less than 120/80. Elevated BP 120/80. Hypertension Stage 1: BP 130-139/80-89. Hypertesnion Stage 2: BP 140 or higher/ 90 or higher. Hypertension Crisis: BP higher than 180/120 Peak Exercise Blood Pressure:: 140/70 Outcomes/Goals: Able to verbalize/achieve optimal blood pressure <130/80, Incorporates diet changes & exercise for blood pressure control by DC Interventions/plan: Instruct on optimal blood pressure, hypertension & medications, Instruct on effects of sodium, alcohol, stress, exercise &hypertension 30 day Reassessments:: Progressing - Tobacco Cessation Referral Smoking Cessation Referral:: No Individual Education/Counseling:: No Education Schedule Given:: Yes Psychosocial - 30-Day Assess - VIsit Date of Eval: 06/08/19 Session #:: 11 Not Applicable: Yes History of previous Mental disease:: No - Target Goals Target Goals: Assess presence or absence of depression. Using a valid screening tool, maximizes coping skills. Positive support system - Psychosocial Test Tool Used:: [employer] QOL Cardiac, PHQ-9 Questionnaire phq-9 Severity: Severity. 1-4 Minimal Depression. 5-9 Mild Depression. 10-14 Moderate Depression. 15-19 Moderately Sever Depression. 20-27 Severe Depression. Rule: - Referral to Behavioral Health PS - Interventions: Yes Attend Stress Management Classes, No Referral to Behavioral Health if PHQ-9 score >9:, No Referral to [facility], No Referral to Physician if PHQ-9 if score is 5-9: - Outcomes/Goals: See list Psychosocial Outcomes/Goals:: ID's personal stressors & 2 strategies to manage stress by discharge - Intervention/Plan: See List Interventions/Plan:: Assess stressors,coping strategies & signs of derpression on admission, Instruct/assist pt to develop coping & personal stress Mgt strategies, Instruct patient to recognize signs & symptoms of depression, Instruct patient to recog - 30-day Reassessments: 30 day Reassessments:: Progressing Patient Health Questionnaire 30-Day Re-eval Assessment 1. Little interest or pleasure in doing things: Not at all 2. Feeling down, depressed, or hopeless: Not at all 3. Trouble falling or staying asleep, or sleeping too much: Several days 4. Feeling tired or having little energy: Several days 5. Poor appetite or overeating: Not at all 6. Feeling bad about yourself -- or that you are a failure or have let yourself or your family down: Not at all 7. Trouble concentrating on things, such as reading the newspaper or watching television: Not at all 8. Moving or speaking so slowly that other people could have noticed. Or the opposite - being so fidgety or restless that you have been moving around a lot more than usual: Not at all 9. Thoughts that you would be better off , or of hurting yourself in some way: Not at all How difficult have these problems made it for you to do your work, take care of things at home, or get along with other people?: Not difficult at all Total Score: 2 Self-Efficacy 30-Day Re-eval Assessment We would like to know how confident you are in doing certain activities. Please select your confidence level for:: Select your confidence level for the following using the scale 1-10 where 1 is not at all confident and 10 is totally confident. Your score is the average of all 6 responses. Fatigue: How confident are you that you can keep the fatigue caused by your disease from interfering with the things you want to do? Select Number: 8 Physical Discomfort or Pain: How confident are you that you can keep the physical discomfort or pain of your disease from interfering with the things you want to do? Select Number: 9 Emotional Distress: How confident are you that you can keep the emotional distress caused by your disease from interfering with the things you want to do? Select Number: 10 Other Symptoms or Health Problems: How confident are you that you can keep other symptoms or health problems from interfering with the things you want to do? Select Number: 10 Different Tasks and Activities: How confident are you that you can do the different tasks and activities needed to manage your health condition so as to reduce your need to see a doctor? Select Number: 10 Medication: How confident are you that you can do things other than just taking medication to reduce how much your illness affects your everyday life? Select Number: 10 Total Score:: 9
[2019-06-08 08:57] VITALS: BP 140/70; BP 94/48; BMI 33.0
== END 2019-06-11 23:59 ==
LOC: CR 09:15
PROVIDERS: PCP Student in an Organized Health Care Education/Training Program; Referring Provider Internal Medicine Cardiovascular Disease; Visit Provider Internal Medicine Cardiovascular Disease
DX: I25.10 Atherosclerotic heart disease of native coronary artery without angina pectoris (principal); I10 Essential (primary) hypertension; I97.89 Other postprocedural complications and disorders of the circulatory system, not elsewhere classified; I48.91 Unspecified atrial fibrillation; Z95.1 Presence of aortocoronary bypass graft
CPT/HCPCS: 93798

== ENCOUNTER → 2019-06-27 07:23 | Outpatient (CLI) | payer BC, SELFPAY ==
[2019-05-10 09:22] VITALS: BMI 30.7
[2019-06-08 08:57] VITALS: BMI 33.0
[2019-06-27 08:29] LABS: Absolute Lymphocyte Count 1.42 X10^3/uL (0.83-4.51); Absolute Neutrophil Count 3.3 X10^3/uL (2.0-7.7); Basophil# 0.06 X10^3/uL; Eosinophil# 0.39 X10^3/uL; Eosinophils% 6.8 % (0-5); Hematocrit 41.1 % (40-54); Hemoglobin 13.4 g/dL (13.0-16.5); Lymphocyte # 1.42 X10^3/ul (4.0); Lymphocyte % 24.7 % (19-41); Mean Corp Hgb Conc 32.6 g/dL (32-36); Mean Corpuscular Hgb 29.6 pg (27.0-32.0); Mean Corpuscular Volume 90.7 fL (80-94); Mean Platelet Vol. 9.4 fl (6.2-12.0); Monocyte# 0.49 X10^3/uL; Monocyte% 8.5 % (0-10); NRBC Flagged by Analyzer 0 % (0-5); Neutrophil # 3.28 X10^3/uL (2.7-7.7); Neutrophil % 57.3 % (47-70); Platelet Count 253 K/mm3 (150-450); RBC Distribution Width CV 13.8 % (11.6-14.6); RBC Distribution Width SD 45.9 fl (35.1-43.9); Red Blood Count 4.53 M/mm3 (4.6-6.2); White Blood Count 5.7 K/mm3 (4.4-11.0)
[2019-06-27 09:20] LABS: AST(SGOT) 14 U/L (15-37); Alanine Aminotransfer ALT/SGPT 25 U/L (16-61); Albumin, Serum 3.4 g/dL (3.2-5.0); Alkaline Phosphatase 87 U/L (45-117); Bilirubin, Direct 0.15 mg/dL (0.00-0.30); Globulin 4.4 g/dL (2.2-4.2); Protein, Total 7.8 g/dL (6.4-8.2)
[2019-06-29 20:07] LABS: QNTFERON TB Mitogen Value > 10.00 IU/mL (.); QNTFERON TB Nil Value 0.03 IU/mL (.); QNTFERON TB1+ Ag Value 0.08 IU/mL (.); QNTFERON TB2+ Ag Value 0.03 IU/mL (.)
[2019-06-30 11:29] LABS: QNTIFERON TB Positive Criteria Negative (Negative)
== END ==
PROVIDERS: PCP Student in an Organized Health Care Education/Training Program; Referring Provider Dermatology; Visit Provider Dermatology
DX: L40.0 Psoriasis vulgaris (principal); L40.3 Pustulosis palmaris et plantaris; Z79.899 Other long term (current) drug therapy
CPT/HCPCS: 36415; 80076; 85025; 86480

== ENCOUNTER 2019-07-04 09:15 | Outpatient (RCR) | payer BC, SELFPAY ==
[2019-05-10 09:22] VITALS: BMI 30.7
[2019-06-08 08:57] VITALS: BMI 33.0
[2019-06-12 00:58] VITALS: BP 140/70; BP 94/48
== END 2019-07-12 23:59 ==
LOC: CR 09:15
PROVIDERS: PCP Student in an Organized Health Care Education/Training Program; Referring Provider Internal Medicine Cardiovascular Disease; Visit Provider Internal Medicine Cardiovascular Disease
DX: I25.10 Atherosclerotic heart disease of native coronary artery without angina pectoris (principal); I10 Essential (primary) hypertension; I97.89 Other postprocedural complications and disorders of the circulatory system, not elsewhere classified; I48.91 Unspecified atrial fibrillation; Z95.1 Presence of aortocoronary bypass graft
CPT/HCPCS: 93798

== ENCOUNTER 2020-11-28 17:10 | Outpatient (CLI) | payer BC, SELFPAY ==
[2019-06-08 08:57] VITALS: BMI 33.0
[2020-11-28] MEDS: 0.9% Saline Lock 10 ML Syringe IV (17:25)
[2020-11-28 17:32] VITALS: BP 112/74; PULSE 68; RESP 16; TEMP 36.4; O2SAT 97; BMI 31.7
[2020-11-28 18:15] VITALS: BP 124/68; PULSE 69; RESP 16; TEMP 36.6; O2SAT 98
[2020-11-28 19:15] VITALS: BP 130/75; PULSE 67; RESP 16; TEMP 36.6; O2SAT 98
== END 2020-11-28 19:15 | disposition home or self-care (01) ==
LOC: ICUOUT 17:10 → ICU 17:11
PROVIDERS: PCP Student in an Organized Health Care Education/Training Program; Referring Provider Nurse Practitioner Acute Care; Visit Provider Nurse Practitioner Acute Care
DX: Z23 Encounter for immunization (principal); U07.1 COVID-19
CPT/HCPCS: J7050; M0243; A4216; Q0244

== ENCOUNTER → 2022-01-01 | Outpatient (CLI) | payer BC, SELFPAY ==
[2019-06-08 08:57] VITALS: BMI 33.0
--- NOTE | 2022-01-01 09:38 | ECHOCS_ITS ---
Reason For Study: AFIB/FLUTTER Procedure This was a 2D Doppler, Color Flow transthoracic echocardiogram. The study was technically difficult. The study was technically limited. Due to poor accoustic windows. Contrast injection was performed. Exam performed in department. Left Ventricle Normal LV size. Left ventricular systolic function is normal. The estimated ejection fraction is 55 %. Stage 3 diastolic dysfunction. No regional wall motion abnormalities noted. Right Ventricle Normal RV size. Normal systolic function. Atria The left atrium is mildly enlarged. The right atrium is mildly enlarged. Mitral Valve Normal mitral valve. Tricuspid Valve The tricuspid valve is not well visualized. Pulmonic Valve The pulmonic valve is not well visualized. Great Vessels Normal aortic root. Pericardium/Pleural No pericardial effusion. Medication 22 gauge I.V. with prn adaptor inserted into right arm. Diluted definity 3.0ml given slow IV push to enhance endocardial definition. MMode/2D Measurements & Calculations LVIDd: 5.4 cm IVSd: 0.88 cm Ao root diam: 3.6 cm LVIDs: 4.1 cm LVPWd: 0.89 cm RVDd: 4.6 cm FS: 24.0 % LAV(MOD-bp): 77.5 ml LA A4 area: 24.1 cm2 LA dimension(2D): 4.3 cm LAV(MOD-bp) Indexed: 35.9 ml/m2 LAV(MOD-sp2): 75.7 ml LAV(MOD-sp4): 70.4 ml RA A4 area: 26.2 cm2 Time Measurements MV dec time: 0.17 sec Doppler Measurements & Calculations MV E max dulce: 109.3 cm/sec MV dec slope: 657.2 cm/sec2 Ao V2 max: 131.6 cm/sec MV A max dulce: 42.3 cm/sec Ao max P.9 mmHg MV E/A: 2.6 LV V1 max: 110.7 cm/sec PA V2 max: 80.7 cm/sec TR max dulce: 201.8 cm/sec LV V1 max P.9 mmHg TR max P.3 mmHg ECHO/Echo Complete W/ Contrast Interpretation Summary Normal LV size. Left ventricular systolic function is normal. The estimated ejection fraction is 55 %. The left atrium is mildly enlarged. The right atrium is mildly enlarged. Stage 3 diastolic dysfunction. Contrast injection was performed. Ordering Physician: Leroy Marquez Referring Physician: Joesph Chaudhari Performed By: Migdalia Ames, ESPERANZA, RVT
== END | disposition home or self-care (01) ==
PROVIDERS: PCP Student in an Organized Health Care Education/Training Program; Referring Provider Nurse Practitioner Family; Visit Provider Nurse Practitioner Family
DX: I48.91 Unspecified atrial fibrillation (principal); I25.10 Atherosclerotic heart disease of native coronary artery without angina pectoris
CPT/HCPCS: 93306; Q9957; A4216; C8929

== ENCOUNTER 2022-01-06 10:31 | Day surgery (SDC) | payer BC, SELFPAY ==
[2019-06-08 08:57] VITALS: BMI 33.0
[2022-01-01 08:39] VITALS: BMI 32.5
--- NOTE | 2022-01-01 10:44 | RAD_ITS ---
INDICATION: pre-operative DCCV EXAMINATION/TECHNIQUE: X-RAY - XR Chest 2 Views COMPARISON: 05/04/2019. FINDINGS: Poor inspiratory effort is seen. LINES/DEVICES: Surgical clips visualized along the right neck soft tissues. Sternal wires are seen. Surgical clips along the left heart border. LUNGS: Peribronchial cuffing bilateral hilar prominence is seen that demonstrate no significant change in comparison to the prior study. Mild bronchovascular prominence but no evidence of focal lung infiltrate or consolidation. The costophrenic angles are clear bilaterally no evidence of pleural effusion is seen. No evidence of pneumothorax or parenchymal lung masses seen. MEDIASTINUM AND CARDIOVASCULAR STRUCTURES: Cardiac silhouette is unremarkable demonstrating no change. BONES AND SOFT TISSUES: Degenerative bone changes seen. RAD/Chest PA and Lateral IMPRESSION: No radiographic evidence of acute cardiopulmonary disease. Electronically Signed: Suman Feliz MD at 15:32 EDT ,
[2022-01-01 12:19] LABS: Anion Gap 4 (5-15); BUN 31 mg/dL (7-18); BUN/Creat Ratio 24.8 RATIO (10-20); Calcium,Total 9.4 mg/dL (8.5-10.1); Chloride 104 mmol/L (98-107); Creatinine, Serum 1.25 mg/dL (0.70-1.30); EST Glomerular Filtration Rate 61 mL/min (>60); Est Glom Filt Rate - Afr Amer 74 mL/min (>60); Estimated Creatinine Clearance 57.59 ml/min; Glucose 87 mg/dL (74-106); Potassium 4.2 mmol/L (3.5-5.1); Sodium Level 141 mmol/L (136-145)
--- NOTE | 2022-01-06 12:17 | PCM.OP.BLANK ---
Problems Associated Problem List Diagnoses (1) Atrial flutter by electrocardiogram: Operative Report Date of Procedure: 01/06/22 DC cardioversion. The patient was brought to the cardiac catheterization lab in the postabsorptive nonsedated state. The patient was seen by Dr. Artis of the critical care division. Informed consent was obtained. Anterior-posterior pads were applied. The patient was then administered 40 mg of intravenous propofol. 200 J of synchronized biphasic energy were applied with prompt reversal to sinus rhythm. Patient tolerated the procedure well. Conclusion: Successful DC cardioversion from atrial flutter to sinus rhythm. Continue as per office protocol
--- NOTE | 2022-01-06 14:05 | PCM.OP.PRO ---
Procedure Report Date of Procedure: 01/06/22 CONSCIOUS SEDATION REPORT BRIEF HISTORY OF PRESENT ILLNESS: The patient is a 71-year-old male who presented to [facility] for an elective outpatient cardioversion due to underlying atrial fibrillation. The patient reports no PO intake since midnight, but is currently therapeutic on anticoagulation. The patient does not have a history of NAOMIE, asthma or COPD. The patient denies any recent constitutional symptoms such as fevers, chills, nausea or vomiting. The patient denies previous applicable anesthetic complications. Patient's last known ejection fraction was 60%. Patient did report taking Eliquis on the day of the procedure. PHYSICAL EXAMINATION: VITAL SIGNS: Reviewed and were acceptable. GENERAL: The patient is a male, in no apparent distress, speaking in full sentences. HEENT: Normocephalic, atraumatic. Mucous membranes are moist and pink. Good mouth opening noted. Trachea is midline. Good neck mobility. MP II CHEST: S1, S2 irregularly irregular. No murmurs, rubs or gallops were noted. LUNGS: Clear to auscultation bilaterally without appreciable wheezes, rales or rhonchi. ABDOMEN: Soft, nontender, nondistended. Positive bowel sounds. EXTREMITIES: There is no clubbing, cyanosis or edema. ASA Class: II DESCRIPTION OF PROCEDURE: After confirmation of informed consent, the patient's anesthesia plan was reviewed in detail. Propofol was chosen. Risks and benefits were reviewed and the patient agreed to proceed. At 12:11 PM, the patient was given 40 mg of propofol. The patient achieved an appropriate level of sedation and received 1 attempt synchronized cardioversion, at [address] Berger at the bedside. This was successful in achieving normal sinus rhythm. The patient was monitored until 12:25 PM, at which time the patient reached their baseline mental status and function. The patient tolerated the procedure well. COMPLICATIONS: None ESTIMATED BLOOD LOSS: None RECOMMENDATIONS: Okay to recover in usual fashion. Procedures Pulmonary [id number]: [id number] Con Sedation
== END 2022-01-06 13:20 | disposition home or self-care (01) ==
PROVIDERS: Nurse Practitioner Family; PCP Student in an Organized Health Care Education/Training Program; Referring Provider Internal Medicine Cardiovascular Disease; Visit Provider Internal Medicine Cardiovascular Disease
DX: I48.91 Unspecified atrial fibrillation (principal); Z95.1 Presence of aortocoronary bypass graft; I10 Essential (primary) hypertension; Z79.82 Long term (current) use of aspirin; Z79.899 Other long term (current) drug therapy; Z79.01 Long term (current) use of anticoagulants; Z86.16 Personal history of COVID-19; E66.9 Obesity, unspecified; I25.10 Atherosclerotic heart disease of native coronary artery without angina pectoris; E03.9 Hypothyroidism, unspecified; Z68.32 Body mass index [BMI] 32.0-32.9, adult
CPT/HCPCS: 36415; 71046; 80048; 92960; 93005; J7040

== ENCOUNTER → 2023-02-03 | Outpatient (CLI) | payer MEDICARE, OTHER, SELFPAY ==
[2019-06-08 08:57] VITALS: BMI 33.0
--- NOTE | 2023-02-03 12:30 | RAD_ITS ---
STUDY: X-RAY CHEST REASON FOR EXAM: Male, 72 years old. Atrial flutter. TECHNIQUE: Frontal and lateral views of the chest. COMPARISON: January 01, 2022. FINDINGS: Stable mild cardiomegaly, sternotomy wires, aortic tortuosity, prominent central pulmonary arteries and mild hyperinflation with scattered healed parenchymal granulomatous calcifications. Stable clips projected over the region of the thyroid. Diffuse osteopenia with diffuse thoracic spondylosis. No abnormality of the visualized soft tissue structures of the upper abdomen. RAD/Chest PA and Lateral IMPRESSION: Stable chest with no acute or emergent finding. Electronically Signed: Jonathan Abarca MD at 15:33 EDT ,
== END | disposition home or self-care (01) ==
PROVIDERS: PCP Student in an Organized Health Care Education/Training Program; Referring Provider Nurse Practitioner Gerontology; Visit Provider Nurse Practitioner Gerontology
DX: I48.0 Paroxysmal atrial fibrillation (principal)
CPT/HCPCS: 71046

== ENCOUNTER → 2023-03-11 | Outpatient (CLI) | payer MEDICARE, OTHER, SELFPAY ==
[2019-06-08 08:57] VITALS: BMI 33.0
--- NOTE | 2023-03-11 16:26 | STRESSREP ---
Stress Test Report Pharmacologic myocardial perfusion stress test. 72-year-old man with a history of atrial flutter Resting EKG demonstrates atrial flutter with a rate of 57 bpm. Resting blood pressure is 132/84 mmHg. 0.4 mg of regadenoson was infused per usual protocol followed by rapid intravenous saline flush injection. Continuous EKG monitoring was performed. The maximum heart rate was 105 bpm which was 70% of max impacted heart rate the maximum workload was 1 metabolic equivalent. At rest there were no ST or T wave changes noted to suggest ischemia and at peak infusion nonspecific ST changes were noted which did not meet the criteria for ischemia. No clinical angina is noted. The final blood pressure was 124/72 mmHg. Myocardial perfusion protocol. 11.3 mCi of technetium 99m sestamibi was injected at rest. 0.4 mg of regadenoson was infused per usual protocol. At peak infusion 33.7 mCi of technetium 99m sestamibi was injected stress images were obtained stress and rest images were reconstructed and compared in the short axis vertical long and horizontal long axis. Gated images were also obtained. Perfusion SPECT analysis: Review of the stress images demonstrate normal uptake of tracer noted in all areas of the myocardium. The resting images similar demonstrated normal uptake of tracer noted in all areas of the myocardium. No areas of reversibility are noted to suggest ischemia and no previous infarct is noted. Gated SPECT analysis: The gated ejection fraction is 68. Conclusion: Normal pharmacologic myocardial perfusion stress test. Preserved ejection fraction. Atrial flutter present
== END | disposition home or self-care (01) ==
LOC: CVS 06:12
PROVIDERS: PCP Student in an Organized Health Care Education/Training Program; Referring Provider Nurse Practitioner Gerontology; Visit Provider Nurse Practitioner Gerontology
DX: I48.0 Paroxysmal atrial fibrillation (principal); Z95.1 Presence of aortocoronary bypass graft; I25.10 Atherosclerotic heart disease of native coronary artery without angina pectoris
CPT/HCPCS: 78452; 93017; A9500; A4216; J2785

== ENCOUNTER → 2023-03-31 | Outpatient (CLI) | payer MEDICARE, OTHER, SELFPAY ==
[2019-06-08 08:57] VITALS: BMI 33.0
[2023-03-31 07:41] LABS: T4 Free Direct 1.79 ng/dL (0.76-1.46)
[2023-03-31 08:16] LABS: T3 Total - Triiodothyronine 0.97 ng/mL (0.6-1.81); Vitamin D,25 Hydroxy 126.4 ng/mL
== END | disposition home or self-care (01) ==
LOC: LAB 06:25
PROVIDERS: PCP Student in an Organized Health Care Education/Training Program; Referring Provider Student in an Organized Health Care Education/Training Program; Visit Provider Student in an Organized Health Care Education/Training Program
DX: E03.9 Hypothyroidism, unspecified (principal); E55.9 Vitamin D deficiency, unspecified
CPT/HCPCS: 36415; 82306; 84439; 84480

== ENCOUNTER 2023-04-20 10:27 | Day surgery (SDC) | payer MEDICARE, OTHER, SELFPAY ==
[2019-06-08 08:57] VITALS: BMI 33.0
[2023-03-31 07:09] LABS: Absolute Lymphocyte Count 1.36 X10^3/uL (0.83-4.51); Absolute Neutrophil Count 2.1 X10^3/uL (2.0-7.7); Basophil# 0.03 X10^3/uL; Basophil% 0.7 % (0-1); Eosinophils% 4.9 % (0-5); Hematocrit 40.6 % (40-54); Hemoglobin 13.2 g/dL (13.0-16.5); Lymphocyte # 1.36 X10^3/ul (0.83-4.51); Lymphocyte % 33.4 % (19-41); Mean Corp Hgb Conc 32.5 g/dL (32-36); Mean Corpuscular Hgb 30.4 pg (27.0-32.0); Mean Corpuscular Volume 93.5 fL (80-94); Monocyte# 0.38 X10^3/uL; Monocyte% 9.3 % (0-10); NRBC Flagged by Analyzer 0 % (0-5); Neutrophil # 2.08 X10^3/uL (2.7-7.7); Neutrophil % 51.2 % (47-70); Platelet Count 223 K/mm3 (150-450); RBC Distribution Width CV 15.3 % (11.6-14.6); RBC Distribution Width SD 53.2 fl (35.1-43.9); Red Blood Count 4.34 M/mm3 (4.6-6.2); White Blood Count 4.1 K/mm3 (4.4-11.0)
[2023-03-31 07:42] LABS: Anion Gap 4 (5-15); BUN 23 mg/dL (7-18); BUN/Creat Ratio 16.3 RATIO (10-20); Calcium,Total 9.6 mg/dL (8.5-10.1); Chloride 109 mmol/L (98-107); Creatinine, Serum 1.41 mg/dL (0.70-1.30); EST Glomerular Filtration Rate 53 mL/min (>60); Est Glom Filt Rate - Afr Amer 64 mL/min (>60); Glucose 89 mg/dL (74-106); Magnesium 2.1 mg/dL (1.6-2.6); Potassium 4.1 mmol/L (3.5-5.1); Sodium Level 141 mmol/L (136-145); Thyroid Stim Hormone (TSH) 0.02 uIU/mL (0.358-3.74)
--- NOTE | 2023-03-31 09:48 | PCM.HP.BLA ---
History and Physical Date of Admission: 04/20/23 Pleasant 73-year-old man who presents for a cardioversion. He underwent a cardiac catheterization which demonstrated severe triple-vessel disease including a calcified left main coronary artery, left anterior descending artery with 85% stenosis, left circumflex artery with 85% stenosis, distal left circumflex artery and a dominant branch with 80% stenosis. His ejection fraction was noted to be normal. He underwent triple-vessel coronary bypass surgery on 03/24/2019 with a left internal mammary artery to the left anterior descending artery, a free right internal mammary artery as a T graft off the saphenous vein graft to the obtuse marginal branch and a saphenous vein graft to the left posterior lateral branch. He did develop postoperative atrial fibrillation and was placed on amiodarone that was eventually discontinued. He was noted to be in Atrial Fibrillation for a colonoscopy. He was restarted on anticoagulation and underwent cardioversion in December 2021. He was recently seen by his PCP, and was noted to be in atrial flutter. From a cardiac standpoint, the patient is doing well. He does have occasional palpitation. He denies chest pain, pressure or heaviness. He denies SOB, Orthopnea, and PND. He does not have bleeding issues; no blood in urine, stool or nosebleeds. He denies any decrease in energy level, myalgias, or claudication. He does not have edema, or sudden weight gain. He denies dizziness, lightheadedness, syncopal or near syncopal episodes, and headaches. He states his blood pressures at home average 120/70-80's. Intake Vital Signs See EMR Allergies See EMR Medications See EMR [facility] Medical History Atherosclerosis of coronary artery of [place] heart without angina pectoris COVID-19 (11/2020) Essential (primary) hypertension Hypothyroidism Obesity Postoperative atrial fibrillation (03/25/19) Surgical History H/O coronary artery bypass surgery (03/24/19) History of cardioversion (01/06/22) History of cataract surgery History of left heart catheterization (03/14/19) History of partial thyroidectomy History of thyroidectomy History of total hip replacement Family History Mother Diabetes Social History Smoking Status: Never smoker alcohol intake: current alcohol intake frequency: a few times a month substance use type: does not use caffeine: Yes Type: tea Number of servings: 5 ROS Const Const: Negative for fatigue, weakness, fever(s), headache(s), chills, frequent falls, weight gain or weight loss Eyes Eyes: Negative for blind spots, loss of peripheral vision, transient loss of vision, blurry vision, change in vision, double vision, floaters or tunnel vision ENT ENT: Negative for headache(s), dizziness, Nosebleed/epistaxis, balance problems or neck pain Cardio Chest Pain: No Palpitations: Yes (occasional) Edema: None Muscle aches with walking: None Resp Respiratory: Negative for SOB with activity, SOB at rest or SOB orthopnea\SOB lying down GI GI: Negative nausea, vomiting, heartburn, bloating, vomiting blood/hematemesis, bright, red blood in stools or black,tarry stools Musc Musc: Negative for muscle aches/ myalgia, muscle weakness, joint pain or balance problems Neuro Neuro: Negative for dizziness, lightheadedness, near syncope, syncope, orthostatic symptoms, frequent falls, headache(s), weakness, blurry vision or double vision Paco Hematologic/Lymphatic: Negative for easy bleeding or easy bruising Endo Endo: Negative for fatigue Cardiology Exam Const Appearance: cooperative, healthy appearing, comfortable and no acute distress Nutritional Appearance: well nourished and obese Orientation: alert, awake and oriented x3 Head Head: normal to inspection Ears: hearing grossly normal bilaterally Nose: external nose normal Face and Sinus: face symmetric Eyes General: appearance normal, both eyes and all related structures Eyelids: eyelids normal EOM: EOM intact bilaterally Neck Neck: normal visual inspection and no JVD Carotids: normal carotid upstroke Chest Chest inspection: normal inspection of the chest, symmetric chest movement and normal respiratory effort; Negative cough Auscultation: Bilateral: Clear to Auscultation Cardio Rate: regular rate Rhythm: irregular rhythm Heart sounds: S1 normal and S2 normal; Negative rub, gallop or murmur GI GI: normal to inspection and obese Neuro General: patient alert, patient awake, patient oriented x3 and CN's II-XI intact bilaterally Skin Skin: no rashes or lesions noted Extremities Pulses: Normal: Right Posterior Tibial Pulse, Left Posterior Tibial Pulse, Right Radial Pulse and Left Radial Pulse Lower Extremity Edema: None: Left and Trace: Right Psych Psychological: normal affect Supplemental Info Supplemental Information Stress Test 03/11/2023: Pharmacologic myocardial perfusion stress test. 72-year-old man with a history of atrial flutter Resting EKG demonstrates atrial flutter with a rate of 57 bpm. Resting blood pressure is 132/84 mmHg. 0.4 mg of regadenoson was infused per usual protocol followed by rapid intravenous saline flush injection. Continuous EKG monitoring was performed. The maximum heart rate was 105 bpm which was 70% of max impacted heart rate the maximum workload was 1 metabolic equivalent. At rest there were no ST or T wave changes noted to suggest ischemia and at peak infusion nonspecific ST changes were noted which did not meet the criteria for ischemia. No clinical angina is noted. The final blood pressure was 124/72 mmHg. Myocardial perfusion protocol. 11.3 mCi of technetium 99m sestamibi was injected at rest. 0.4 mg of regadenoson was infused per usual protocol. At peak infusion 33.7 mCi of technetium 99m sestamibi was injected stress images were obtained stress and rest images were reconstructed and compared in the short axis vertical long and horizontal long axis. Gated images were also obtained. Perfusion SPECT analysis: Review of the stress images demonstrate normal uptake of tracer noted in all areas of the myocardium. The resting images similar demonstrated normal uptake of tracer noted in all areas of the myocardium. No areas of reversibility are noted to suggest ischemia and no previous infarct is noted. Gated SPECT analysis: The gated ejection fraction is 68. Conclusion: Normal pharmacologic myocardial perfusion stress test. Preserved ejection fraction. Atrial flutter present Echocardiogram from 01/01/2022: Interpretation Summary Normal LV size. Left ventricular systolic function is normal. The estimated ejection fraction is 55 %. The left atrium is mildly enlarged. The right atrium is mildly enlarged. Stage 3 diastolic dysfunction. Contrast injection was performed. Echocardiogram 03/11/2019: Interpretation Summary Normal LV size. Left ventricular systolic function is normal. The estimated ejection fraction is 60 %. Stage 1 diastolic dysfunction. Mild tricuspid valve insufficiency. Pulmonary artery systolic pressure is 30 mmHg. Contrast injection was performed. Heart catheterization from 03/14/2019: CONCLUSIONS Multivessel disease involving a calcified left main and extensively calcified left anterior descending artery which are long 80% stenosis noted in the proximal and mid left anterior descending artery, focal 85% stenosis noted in the first obtuse marginal branch, long 80% stenosis noted in the mid and distal dominant left circumflex artery. RECOMMENDATIONS Surgery consult for coronary revascularization CORONARY ANGIOGRAPHY DOMINANCE: Left Dominant LEFT HEART ASSESSMENT Left Ventricular Ejection Fraction: by LV Gram 65 % Normal LV wall motion Normal Left Ventricular systolic function LEFT MAIN: Moderate calcification, 20 % Stenosis LEFT ANTERIOR DESCENDING ARTERY: Moderate calcification PROX LAD: long 70 % Stenosis MID LAD: long 80 pct % Stenosis CIRCUMFLEX ARTERY: MID CIRC: long 80 % Stenosis DISTAL CIRC: long 80 % Stenosis OM 1: Proximal - 85 % Stenosis RIGHT CORONARY ARTERY: Non-obstructive Assessment and Plan Assessment and Plan (1) Paroxysmal atrial fibrillation: Status: Acute Comment: DCCV on 01/06/2022; Plan: Patient has a history of paroxysmal atrial fibrillation. His most recent EKG demonstrated atrial fib/flutter, heart rate 55bpm. His most recent echocardiogram from 01/01/2022 demonstrated an ejection fraction of 55% and mildly enlarged left and right atrium. Patient has not missed any doses of Eliquis. He will continue Eliquis 5mg twice daily, and metoprolol succinate 50mg daily. Cardioversion was discussed, and he was agreeable. Instructions were given, and he verbalized understanding. Will proceed with cardioversion on 04/20/[address] Berger.
--- NOTE | 2023-04-20 11:39 | PCM.OP.PRO ---
Procedure Report Date of Procedure: 04/20/23 DC cardioversion. 73-year-old male with a history of atrial fibrillation flutter who has been on anticoagulation. Patient presents for DC cardioversion. Informed consent was obtained. The patient was seen by Dr. Madrid of the critical care division. Anterior-posterior pads were applied. 40 mg of intravenous propofol was administered and then 200 J of synchronized biphasic cardioversion energy were applied with prompt reversal to sinus rhythm. Patient tolerated the procedure well. Conclusion: Successful DC cardioversion from atrial fibrillation to sinus rhythm. Follow-up as per office protocol.
--- NOTE | 2023-04-20 12:08 | PRO.PCM_ITS ---
Procedure Report Date of Procedure: 04/20/23 CONSCIOUS SEDATION REPORT DATE OF SERVICE: April 20, 2023 BRIEF HISTORY OF PRESENT ILLNESS: The patient is a 73-year-old male who presented to [facility] for elective outpatient cardioversion due to underlying atrial fibrillation. The patient did previously undergo a cardioversion in December 2021, during which time, the patient required 40 mg of propofol. The patient denied any prior anesthetic complications. His last surface echocardiogram demonstrated an ejection fraction of 55%. He is systemically anticoagulated on Eliquis. He denied a history of asthma, COPD or obstructive sleep apnea. PHYSICAL EXAMINATION: VITAL SIGNS: Reviewed and were acceptable. GENERAL: The patient is a male, in no apparent distress, speaking in full sentences. HEENT: Normocephalic, atraumatic. Mucous membranes are moist and pink. Good mouth opening noted. Trachea is midline. CHEST: S1, S2 irregularly irregular. No murmurs, rubs or gallops were noted. LUNGS: Clear to auscultation bilaterally without appreciable wheezes, rales or rhonchi. ABDOMEN: Soft, nontender, nondistended. Positive bowel sounds. EXTREMITIES: There is no clubbing, cyanosis or edema. ASA Class: II DESCRIPTION OF PROCEDURE: After confirmation of informed consent, the patient's anesthesia plan was reviewed in detail. Propofol was chosen. Risks and benefits were reviewed and the patient agreed to proceed. At 1131, the patient was given 40 mg of propofol. The patient achieved an appropriate level of sedation and was given a 200 joule synchronized cardioversion by Dr. Berger at the bedside. This was successful in achieving normal sinus rhythm. The patient was monitored until 1143, at which time they reached her baseline mental status and function. The patient tolerated the procedure well. COMPLICATIONS: None ESTIMATED BLOOD LOSS: None RECOMMENDATIONS: Okay to recover in usual fashion. Procedures Pulmonary 9xxxx: [id number] Con Sedation
== END 2023-04-20 12:30 | disposition home or self-care (01) ==
PROVIDERS: Nurse Practitioner Gerontology; PCP Student in an Organized Health Care Education/Training Program; Referring Provider Internal Medicine Cardiovascular Disease; Visit Provider Internal Medicine Cardiovascular Disease
DX: I48.0 Paroxysmal atrial fibrillation (principal); I48.92 Unspecified atrial flutter; I10 Essential (primary) hypertension; I25.10 Atherosclerotic heart disease of native coronary artery without angina pectoris
CPT/HCPCS: 36415; 80048; 83735; 84443; 85025; 92960; 93005; J7040

== ENCOUNTER → 2023-06-01 | Outpatient (CLI) | payer MEDICARE, OTHER, SELFPAY ==
[2019-06-08 08:57] VITALS: BMI 33.0
--- NOTE | 2023-06-01 12:54 | ECHOCS_ITS ---
Reason For Study: PAROXYSMAL AFIB Procedure This was a 2D Doppler, Color Flow transthoracic echocardiogram. The study was technically difficult. Poor parasternal accoustic windows. Contrast injection was performed. Left Ventricle Normal LV size. Left ventricular systolic function is normal. The estimated ejection fraction is 65 %. Stage 3 diastolic dysfunction. No regional wall motion abnormalities noted. Right Ventricle Normal RV size. Normal systolic function. Atria The left atrium is moderately enlarged. The right atrium is mildly enlarged. Tricuspid Valve Normal tricuspid valve. Mild tricuspid valve insufficiency. Pulmonary artery systolic pressure is 25 mmHg. Aortic Valve The aortic valve is not well visualized. Great Vessels Normal aortic root. The pulmonary artery is normal size. Normal inferior vena cava. Pericardium/Pleural No pericardial effusion. Medication 22 gauge I.V. with prn adaptor inserted into right arm. Diluted definity 3.0ml given slow IV push to enhance endocardial definition. MMode/2D Measurements & Calculations LVIDd: 5.0 cm IVSd: 1.1 cm Ao root diam: 3.5 cm LVIDs: 3.5 cm LVPWd: 1.0 cm RVDd: 4.5 cm FS: 29.3 % LAV(MOD-bp): 67.5 ml LVAd ap4: 29.2 cm2 LVAd ap2: 25.7 cm2 LAV(MOD-bp) Indexed: 31.1 ml/m2 LVLd ap4: 8.4 cm LVLd ap2: 8.6 cm LAV(MOD-sp2): 53.1 ml EDV(MOD-sp4): 85.8 ml EDV(MOD-sp2): 65.5 ml LAV(MOD-sp4): 76.5 ml EDV(sp4-el): 86.1 ml EDV(sp2-el): 65.2 ml LVAs ap4: 15.3 cm2 LVAs ap2: 13.4 cm2 LVLs ap4: 7.2 cm LVLs ap2: 6.7 cm ESV(MOD-sp4): 31.0 ml ESV(MOD-sp2): 22.8 ml ESV(sp4-el): 27.8 ml ESV(sp2-el): 22.8 ml EF(MOD-sp4): 63.9 % EF(MOD-sp2): 65.2 % EF(sp4-el): 67.7 % SV(MOD-sp4): 54.8 ml SV(MOD-sp2): 42.7 ml SV(sp4-el): 58.3 ml LA dimension(2D): 4.1 cm LA A4 area: 24.5 cm2 RA A4 area: 21.8 cm2 TAPSE: 1.7 cm Time Measurements MV dec time: 0.11 sec Doppler Measurements & Calculations MV E max erich: 97.7 cm/sec Lat Peak E' Erich: 14.4 cm/sec Med Peak E' Erich: 14.0 cm/sec MV A max erich: 41.7 cm/sec E/E' lat: 6.8 E/E' med: 7.0 MV E/A: 2.3 MV V2 max: 133.7 cm/sec MV P1/2t max erich: 122.4 cm/sec Ao V2 max: 142.5 cm/sec MV max P.1 mmHg MV P1/2t: 41.9 msec Ao max P.1 mmHg MV V2 mean: 69.3 cm/sec MV dec slope: 855.8 cm/sec2 Ao V2 mean: 97.7 cm/sec MV mean P.3 mmHg Ao mean P.2 mmHg MV V2 VTI: 26.0 cm MVA(P1/2t): 5.3 cm2 Ao V2 VTI: 29.2 cm AV (velocity ratio): 0.81 LV V1 max: 113.0 cm/sec TR max erich: 231.5 cm/sec LV V1 max P.1 mmHg TR max P.4 mmHg LV V1 mean P.0 mmHg LV V1 mean: 83.7 cm/sec LV V1 VTI: 23.5 cm ECHO/Echo Complete W/ Contrast Interpretation Summary Normal LV size. Left ventricular systolic function is normal. The estimated ejection fraction is 65 %. The left atrium is moderately enlarged. Stage 3 diastolic dysfunction. Contrast injection was performed. Ordering Physician: Rachael Aiken Referring Physician: Joesph Chaduhari Performed By: Kwaku, Migdalia, RDCS, RVT
== END | disposition home or self-care (01) ==
PROVIDERS: PCP Student in an Organized Health Care Education/Training Program; Referring Provider Nurse Practitioner Gerontology; Visit Provider Nurse Practitioner Gerontology
DX: I48.0 Paroxysmal atrial fibrillation (principal)
CPT/HCPCS: 93306; Q9957; A4216; C8929

== ENCOUNTER 2024-02-23 21:44 | Emergency (ER) | payer MEDICARE, OTHER, SELFPAY ==
[2019-06-08 08:57] VITALS: BMI 33.0
[2024-02-23 21:45] VITALS: BP 158/93; PULSE 18; RESP 18; TEMP 36.8; O2SAT 98; BMI 37.2
[2024-02-23 23:26] VITALS: BP 158/93; PULSE 18; RESP 18; TEMP 36.8; O2SAT 98
[2024-02-23] MEDS: Cephalexin 250 MG Capsule 500 MG PO (23:30)
== END 2024-02-23 23:32 | disposition home or self-care (01) ==
PROVIDERS: Emergency Provider Emergency Medicine; PCP Student in an Organized Health Care Education/Training Program; Visit Provider Emergency Medicine
DX: L02.01 Cutaneous abscess of face (principal); I25.10 Atherosclerotic heart disease of native coronary artery without angina pectoris; I10 Essential (primary) hypertension; E03.9 Hypothyroidism, unspecified; E66.9 Obesity, unspecified; Z79.01 Long term (current) use of anticoagulants; Z79.82 Long term (current) use of aspirin; Z79.899 Other long term (current) drug therapy; Z95.1 Presence of aortocoronary bypass graft
CPT/HCPCS: 99282